=== PATIENT | male | born 1945 | race African-American/Black ===

== ENCOUNTER 2017-06-22 10:56 | Inpatient (IN) ==
[2017-06-22] MEDS ORDERED: BUPIVACAINE 0.25% 50 ML VIAL ONE (11:45)
[2017-06-22] MEDS ORDERED: HEPARIN 5,000 UNIT/1 ML VIAL ONE (11:45)
[2017-06-22] MEDS ORDERED: SODIUM CHLORIDE 0.9% 1,000 ML IV PRN ×2 (12:03→12:14)
[2017-06-22 12:05] LABS: Basophils % 0.2 % (0.0-0.8); Eosinophils # 0.1 10*3/uL (0.0-0.87); Eosinophils % 0.6 % (0.00-10.9); Hematocrit 18.3 VOL% (42.0-52.0); Immature Granulocytes % 8.1 %; Immature Granulocytes Absolute 1.02 #; Lymphocytes # 3.1 10*3/uL (1.4-4.0); Lymphocytes % 24.7 % (21.2-54.2); Mean Corpuscular HGB Conc 31.7 GM/DL (32-36); Mean Corpuscular Hemoglobin 27 PG (27-34); Mean Corpuscular Volume 84.7 FL (87-102); Monocytes % 7.6 % (1.7-12.7); NRBC # 0.03 10*3/uL; Neutrophils # 7.4 10*3/uL (1.4-7.4); Neutrophils % 58.8 % (38.7-73.9); Platelet Count 172 T/CUMM (130-400); Red Blood Count 2.16 MC/CUMM (3.8-5.5); Red Cell Distribution Width 16.8 % (9.3-17.3); White Blood Count 12.6 T/CUMM (4-12)
[2017-06-22] MEDS ORDERED: LIDOCAINE 1% 20 ML VIAL MISC INJ ONE (12:05)
[2017-06-22] MEDS ORDERED: HYDROmorphone 2 MG/1 ML VIAL IV ONE (12:05)
[2017-06-22] MEDS ORDERED: EPTIFIBATIDE 20,000 MCG/10 ML VIAL IV ONE (12:05)
[2017-06-22] MEDS ORDERED: NITROPRUSSIDE 50 MG/2 ML VIAL IV ONE (12:05)
[2017-06-22] MEDS ORDERED: NITROGLYCERIN 50 MG/250 ML BOTTLE IV ONE (12:05)
[2017-06-22] MEDS ORDERED: MIDAZOLAM 2 MG/2 ML VIAL IV ONE (12:05)
[2017-06-22] MEDS ORDERED: HEPARIN/NACL 0.9% 2 UNITS/ML 1,000 ML IV ONE (12:05)
[2017-06-22 12:09] LABS: Hemoglobin 5.8 GM/DL (14.0-18.0)
[2017-06-22] MEDS ORDERED: MAGNESIUM SULF RIDER 2 GM in PREMIX 1 EACH IV PRN (12:20)
[2017-06-22] MEDS ORDERED: POTASSIUM CHLORIDE 20 MEQ TABLET PO PRN (12:20)
[2017-06-22] MEDS ORDERED: BIVALIRUDIN 250 MG VIAL IV ONE (12:33)
[2017-06-22] MEDS ORDERED: BIVALIRUDIN 250 MG in SODIUM CHLORIDE 0.9% 50 ML IV SCH (12:52)
[2017-06-22] MEDS ORDERED: ROSUVASTATIN 20 MG TABLET PO SCH (13:00)
[2017-06-22 13:19] LABS: Hypochromasia 2+; Lymphocytes 26 % (20-55); Segmented Neutrophils 70 % (50-85); Total Cells Counted 100
[2017-06-22 13:20] LABS: Microcytosis Slight; Platelet Estimate Adequate
[2017-06-22] MEDS ORDERED: ACETAMINOPHEN 325 MG TABLET PO PRN (13:45)
[2017-06-22] MEDS ORDERED: NITROGLYCERIN SL 0.4 MG TABLET SL PRN (13:45)
[2017-06-22] MEDS ORDERED: ZALEPLON 5 MG CAPSULE PO PRN (13:45)
[2017-06-22] MEDS ORDERED: ACETAMINOPHEN/CODEINE 300-30 MG TABLET PO PRN (13:45)
[2017-06-22 13:50] LABS: Calcium 7.4 MG/DL (8.5-10.1); Osmolality,Calculated 292.1 MOS/KG (273-304); Potassium 3.2 MMOL/L (3.5-5.1)
[2017-06-22] MEDS ORDERED: ASPIRIN 300 MG SUPP RECTAL ONE (13:58)
[2017-06-22] MEDS ORDERED: ceFAZolin 1,000 MG VIAL ONE (14:20)
[2017-06-22] MEDS ORDERED: MIDAZOLAM 2 MG/2 ML VIAL ONE (15:19)
[2017-06-22] MEDS ORDERED: KETAMINE 500 MG/10 ML VIAL ONE (15:19)
[2017-06-22 15:56] LABS: Basophils # 0.1 10*3/uL (0.0-0.2); Basophils % 0.5 % (0.0-0.8); Eosinophils % 0.1 % (0.00-10.9); Hematocrit 39.4 VOL% (42.0-52.0); Hemoglobin 12.9 GM/DL (14.0-18.0); Immature Granulocytes Absolute 1.99 #; Lymphocytes # 2.4 10*3/uL (1.4-4.0); Lymphocytes % 8.5 % (21.2-54.2); Mean Corpuscular HGB Conc 32.7 GM/DL (32-36); Mean Corpuscular Hemoglobin 30 PG (27-34); Mean Corpuscular Volume 90.6 FL (87-102); Monocytes # 1.6 10*3/uL (0.11-0.8); Monocytes % 5.6 % (1.7-12.7); NRBC # 0.03 10*3/uL; Neutrophils # 22.2 10*3/uL (1.4-7.4); Neutrophils % 78.3 % (38.7-73.9); Platelet Count 140 T/CUMM (130-400); Red Blood Count 4.35 MC/CUMM (3.8-5.5); Red Cell Distribution Width 15.6 % (9.3-17.3); White Blood Count 28.4 T/CUMM (4-12)
[2017-06-22 16:29] LABS: Calcium 7.5 MG/DL (8.5-10.1); Osmolality,Calculated 284.8 MOS/KG (273-304)
[2017-06-22 16:44] LABS: Lymphocytes 7 % (20-55); Platelet Estimate Decreased; Segmented Neutrophils 92 % (50-85); Total Cells Counted 100
[2017-06-22] MEDS: SEVELAMER CARBONATE 800 MG TABLET PO SCH (16:49)
[2017-06-22] MEDS ORDERED: TICAGRELOR 90 MG TABLET PO ONE (17:00)
[2017-06-22] MEDS: MORPHINE 2 MG/1 ML SYRINGE IV PRN (20:47)
[2017-06-22] MEDS: ROSUVASTATIN 20 MG TABLET PO SCH (20:47)
[2017-06-22] MEDS: TICAGRELOR 90 MG TABLET PO SCH (20:47)
[2017-06-23] MEDS ORDERED: MAGNESIUM HYDROXIDE SUSP 30 ML UDCUP PO PRN (00:07)
[2017-06-23] MEDS ORDERED: HYDROmorphone 2 MG/1 ML VIAL IV PRN (00:07)
[2017-06-23] MEDS ORDERED: SODIUM CHLORIDE 0.9% 100 ML IV ONE (03:46)
[2017-06-23 05:10] LABS: Basophils # 0.1 10*3/uL (0.0-0.2); Basophils % 0.2 % (0.0-0.8); Hematocrit 37.6 VOL% (42.0-52.0); Hemoglobin 12.4 GM/DL (14.0-18.0); Immature Granulocytes % 9.4 %; Immature Granulocytes Absolute 2.85 #; Lymphocytes % 6.7 % (21.2-54.2); Mean Corpuscular Hemoglobin 30 PG (27-34); Mean Corpuscular Volume 89.5 FL (87-102); Mean Platelet Volume 11.9 FL (9.6-12.0); Monocytes # 1.8 10*3/uL (0.11-0.8); Neutrophils # 23.5 10*3/uL (1.4-7.4); Neutrophils % 77.7 % (38.7-73.9); Platelet Count 168 T/CUMM (130-400); Red Cell Distribution Width 16.2 % (9.3-17.3); White Blood Count 30.3 T/CUMM (4-12)
[2017-06-23] MEDS ORDERED: PHENYLEPHRINE DRIP 40 MG/250 ML PREMIX IV ONE ×2 (05:26→09:30)
[2017-06-23] MEDS ORDERED: PHENYLEPHRINE DRIP 40 MG/250 ML PREMIX IV SCH (05:30)
[2017-06-23 05:40] LABS: Calcium 8.3 MG/DL (8.5-10.1); Osmolality,Calculated 291.4 MOS/KG (273-304); Potassium 4.5 MMOL/L (3.5-5.1)
[2017-06-23 05:45] LABS: Band Neutrophils 14 % (0-10); Lymphocytes 10 % (20-55); Nucleated Red Blood Cells 4 (0-5); Segmented Neutrophils 69 % (50-85); Total Cells Counted 100
[2017-06-23 05:46] LABS: Burr Cells Slight; Giant Platelets Few; Hypochromasia 1+; Microcytosis Slight; Ovalocytes Slight; Platelet Estimate Normal
[2017-06-23 05:52] LABS: Risk Ratio 3.38; VLDL CHOLESTEROL 42.2 MG/DL
[2017-06-23] MEDS ORDERED: GLUCAGON 1 MG VIAL IM PRN (06:13)
[2017-06-23] MEDS: INSULIN REGULAR 100 UNIT/ML SUBCUT SCH ×3 (06:36→18:19)
[2017-06-23 08:13] LABS: CKMB % 15.2 %
[2017-06-23 08:17] LABS: Troponin I Only 26.3 NG/ML (0.00-0.045)
[2017-06-23] MEDS: SEVELAMER CARBONATE 800 MG TABLET PO SCH ×3 (09:43→16:37)
[2017-06-23] MEDS: MORPHINE 2 MG/1 ML SYRINGE IV PRN ×2 (09:44→16:32)
[2017-06-23] MEDS: TICAGRELOR 90 MG TABLET PO SCH ×2 (09:44→20:14)
[2017-06-23] MEDS: PANTOPRAZOLE 40 MG TABLET PO SCH (09:44)
[2017-06-23] MEDS: ASPIRIN EC 81 MG TABLET PO SCH (09:44)
[2017-06-23] MEDS ORDERED: SODIUM BICARBONATE 50 MEQ/50 ML SYRINGE IV ONE ×2 (10:50→20:50)
[2017-06-23] MEDS: PHENYLEPHRINE INJ 160 MG in SODIUM CHLORIDE 0.9% 234 ML IV SCH ×2 (11:38→23:01)
[2017-06-23] MEDS: SIMETHICONE CHEW 80 MG TABLET PO SCH ×3 (11:49→20:14)
[2017-06-23 12:21] LABS: Lactic Acid 14.5 MMOL/L (0.4-2.0)
[2017-06-23 12:36] LABS: CKMB % 16.6 %
[2017-06-23 12:41] LABS: Troponin I Only 39.3 NG/ML (0.00-0.045)
[2017-06-23 12:43] LABS: Alanine Aminotransferase 477 U/L (16-61); Albumin 2.6 G/DL (3.4-5.0); Alkaline Phosphatase 71 U/L (45-117); Aspartate Amino Transferase 672 U/L (0-37); Bilirubin,Direct < 0.100 MG/DL (0.0-0.20); Bilirubin,Indirect 0.3 MG/DL (0.0-1.0); Total Protein 5.2 G/DL (6.4-8.3)
[2017-06-23] MEDS ORDERED: BISACODYL 5 MG TABLET PO ONE (15:31)
[2017-06-23] MEDS ORDERED: ASPIRIN EC 81 MG TABLET PO SCH (17:00)
[2017-06-23 19:29] LABS: CKMB % 16.8 %
[2017-06-23 19:30] LABS: Troponin I Only 66.2 NG/ML (0.00-0.045)
[2017-06-23] MEDS ORDERED: NOREPINEPHRINE 4 MG/4 ML VIAL IV ONE ×2 (20:08→20:18)
[2017-06-23] MEDS: NOREPINEPHRINE 16 MG in SODIUM CHLORIDE 0.9% 234 ML IV SCH (20:14)
[2017-06-23] MEDS: ROSUVASTATIN 20 MG TABLET PO SCH (20:14)
[2017-06-23 20:15] LABS: ABG Base Excess -14.1 MMOL/L (-2.5-2.5); ABG HCO3 13.5 MMOL/L (20-26); ABG Oxygen Saturation 94.7 % (95-100); ABG PH 7.325 (7.35-7.45); ABG PO2 80.5 MM HG (80-95); ABG TCO2 9.6 MMOL/L (23-27); Pt O2 Delivery Device Room Air
[2017-06-23 20:17] LABS: ABG PCO2 20.3 MM HG (35-48)
[2017-06-23 21:02] LABS: Basophils % 0.2 % (0.0-0.8); Eosinophils % 0.1 % (0.00-10.9); Hematocrit 29.9 VOL% (42.0-52.0); Hemoglobin 10.1 GM/DL (14.0-18.0); Immature Granulocytes % 2.9 %; Immature Granulocytes Absolute 0.51 #; Lymphocytes # 1.1 10*3/uL (1.4-4.0); Lymphocytes % 6.4 % (21.2-54.2); Mean Corpuscular HGB Conc 33.8 GM/DL (32-36); Mean Corpuscular Hemoglobin 30 PG (27-34); Mean Corpuscular Volume 87.7 FL (87-102); Mean Platelet Volume 11.9 FL (9.6-12.0); Monocytes # 1.1 10*3/uL (0.11-0.8); NRBC # 1.06 10*3/uL; Neutrophils # 14.8 10*3/uL (1.4-7.4); Neutrophils % 84.4 % (38.7-73.9); Platelet Count 123 T/CUMM (130-400); Red Blood Count 3.41 MC/CUMM (3.8-5.5); White Blood Count 17.5 T/CUMM (4-12)
[2017-06-23 21:17] LABS: Lactic Acid 13.9 MMOL/L (0.4-2.0)
[2017-06-23 21:33] LABS: Acanthocytes 1+; Band Neutrophils 14 % (0-10); Lymphocytes 3 % (20-55); Nucleated Red Blood Cells 3 (0-5); Segmented Neutrophils 78 % (50-85); Total Cells Counted 100
[2017-06-23 21:34] LABS: Anisocytosis 1+; Platelet Estimate Adequate; Poikilocytosis 1+; Polychromasia Slight
[2017-06-23] MEDS: PIPERACILLIN/TAZOBACTAM 3,375 MG in SODIUM CHLORIDE 0.9% 100 ML IV SCH (21:44)
[2017-06-23] MEDS: metroNIDAZOLE INJ 500 MG in PREMIX 1 EACH IV SCH (21:44)
[2017-06-23 21:47] LABS: Calcium 8.2 MG/DL (8.5-10.1); Osmolality,Calculated 291.7 MOS/KG (273-304); Potassium 4.6 MMOL/L (3.5-5.1)
[2017-06-23] MEDS ORDERED: SODIUM CHLORIDE 0.9% 1,000 ML IV ONE (21:52)
[2017-06-23 22:50] LABS: ABG Base Excess -11.7 MMOL/L (-2.5-2.5); ABG HCO3 15.1 MMOL/L (20-26); ABG Oxygen Saturation 94.3 % (95-100); ABG PCO2 22.6 MM HG (35-48); ABG PH 7.357 (7.35-7.45); ABG PO2 74.1 MM HG (80-95); ABG TCO2 11.8 MMOL/L (23-27)
[2017-06-23] MEDS ORDERED: ALBUMIN 5% 25 GM in PREMIX 1 EACH IV ONE (23:54)
[2017-06-23] MEDS ORDERED: HYDROCORTISONE 100 MG VIAL IV ONE (23:54)
[2017-06-23] MEDS ORDERED: ALBUMIN 5% 12.5 GM/250 ML VIAL IV ONE (23:55)
[2017-06-24] MEDS: VASOPRESSIN 100 UNITS in SODIUM CHLORIDE 0.9% 95 ML IV SCH (00:10)
[2017-06-24] MEDS: INSULIN REGULAR 100 UNIT/ML SUBCUT SCH ×4 (00:15→18:07)
[2017-06-24 01:18] LABS: ABG Base Excess -10.7 MMOL/L (-2.5-2.5); ABG HCO3 15.8 MMOL/L (20-26); ABG Oxygen Saturation 99.4 % (95-100); ABG PCO2 36.2 MM HG (35-48); ABG PH 7.246 (7.35-7.45); ABG TCO2 15.1 MMOL/L (23-27); Glucose Heart Surgery 134 MG/DL (74-106); Potassium Heart/CVR 3.5 MMOL/L (3.5-5.1)
[2017-06-24] MEDS ORDERED: KETAMINE 500 MG/10 ML VIAL ONE (02:11)
[2017-06-24] MEDS ORDERED: SODIUM BICARBONATE 50 MEQ/50 ML SYRINGE IV ONE (02:16)
[2017-06-24] MEDS ORDERED: ROCURONIUM 100 MG/10 ML VIAL IV ONE ×2 (02:16→10:26)
[2017-06-24] MEDS ORDERED: SEVOFLURANE 1 UNIT/15 MINUTE INH ONE ×2 (02:16→10:26)
[2017-06-24] MEDS ORDERED: SODIUM CHLORIDE 0.9% 1,000 ML IV ONE ×2 (02:16→10:26)
[2017-06-24] MEDS: metroNIDAZOLE INJ 500 MG in PREMIX 1 EACH IV SCH ×5 (03:10→20:00)
[2017-06-24] MEDS: NOREPINEPHRINE 16 MG in SODIUM CHLORIDE 0.9% 234 ML IV SCH ×2 (03:31→17:29)
[2017-06-24 03:43] LABS: ABG HCO3 17.1 MMOL/L (20-26); ABG PCO2 37.6 MM HG (35-48); ABG PH 7.269 (7.35-7.45); ABG TCO2 16.4 MMOL/L (23-27)
[2017-06-24] MEDS: MORPHINE 2 MG/1 ML SYRINGE IV PRN ×4 (04:02→19:46)
[2017-06-24 04:23] LABS: Calcium 6.7 MG/DL (8.5-10.1); Osmolality,Calculated 300.1 MOS/KG (273-304)
[2017-06-24 04:37] LABS: Lactic Acid 9.1 MMOL/L (0.4-2.0)
[2017-06-24 05:20] LABS: Basophils % 0.1 % (0.0-0.8); Hematocrit 23.5 VOL% (42.0-52.0); Hemoglobin 7.9 GM/DL (14.0-18.0); Immature Granulocytes % 2.5 %; Immature Granulocytes Absolute 0.32 #; Lymphocytes # 0.5 10*3/uL (1.4-4.0); Lymphocytes % 3.6 % (21.2-54.2); Mean Corpuscular HGB Conc 33.6 GM/DL (32-36); Mean Corpuscular Hemoglobin 29 PG (27-34); Mean Corpuscular Volume 87.4 FL (87-102); Monocytes # 0.9 10*3/uL (0.11-0.8); Monocytes % 7.2 % (1.7-12.7); NRBC # 0.86 10*3/uL; Neutrophils # 11.2 10*3/uL (1.4-7.4); Neutrophils % 86.6 % (38.7-73.9); Red Blood Count 2.69 MC/CUMM (3.8-5.5); Red Cell Distribution Width 15.9 % (9.3-17.3); White Blood Count 12.9 T/CUMM (4-12)
[2017-06-24 05:41] LABS: INR 1.3; PT Patient Result 13.1 SECS; Partial Thromboplastin Time 35.6 SECS (0-40)
[2017-06-24 05:46] LABS: Platelet Count 71 T/CUMM (130-400)
[2017-06-24] MEDS: PROPOFOL 1,000 MG/100 ML BOTTLE IV SCH ×2 (06:22→22:25)
[2017-06-24] MEDS: PHENYLEPHRINE INJ 160 MG in SODIUM CHLORIDE 0.9% 234 ML IV SCH ×3 (06:23→20:19)
[2017-06-24 06:53] LABS: Band Neutrophils 9 % (0-10); Lymphocytes 4 % (20-55); Metamyelocytes 5 %; Myelocytes 1 %; Nucleated Red Blood Cells 5 (0-5); Segmented Neutrophils 76 % (50-85)
[2017-06-24 06:54] LABS: Burr Cells 2+; Hypochromasia Slight
[2017-06-24 06:55] LABS: Platelet Estimate Decreased; Total Cells Counted 100
[2017-06-24] MEDS: SEVELAMER CARBONATE 800 MG TABLET PO SCH ×3 (08:28→16:41)
[2017-06-24] MEDS ORDERED: MIDAZOLAM 10 MG/2 ML VIAL ONE (10:26)
[2017-06-24 10:54] LABS: Hematocrit 35.4 VOL% (42.0-52.0)
[2017-06-24] MEDS: PANTOPRAZOLE 40 MG TABLET PO SCH (11:55)
[2017-06-24] MEDS: TICAGRELOR 90 MG TABLET PO SCH ×2 (12:07→20:01)
[2017-06-24] MEDS: PIPERACILLIN/TAZOBACTAM 3,375 MG in SODIUM CHLORIDE 0.9% 100 ML IV SCH ×2 (12:07→20:01)
[2017-06-24] MEDS: ASPIRIN EC 81 MG TABLET PO SCH (12:08)
[2017-06-24] MEDS: SIMETHICONE CHEW 80 MG TABLET PO SCH ×3 (12:08→20:01)
[2017-06-24] MEDS: PANTOPRAZOLE 40 MG VIAL IV SCH (12:22)
[2017-06-24 13:46] LABS: Hepatitis B Surface Ag Quant < 0.10 Index; Hepatitis B Surface Ag Result Negative (Negative)
[2017-06-24] MEDS ORDERED: HEPARIN 10,000 UNIT/10 ML VIAL IV SCH (14:30)
[2017-06-24 14:33] LABS: Lactic Acid 7.2 MMOL/L (0.4-2.0)
[2017-06-24] MEDS: DEXTROSE 50% 25 GM/50 ML VIAL IV PRN (18:03)
[2017-06-24] MEDS: ROSUVASTATIN 20 MG TABLET PO SCH (20:00)
[2017-06-25] MEDS: DEXTROSE 50% 25 GM/50 ML VIAL IV PRN (00:08)
[2017-06-25] MEDS: INSULIN REGULAR 100 UNIT/ML SUBCUT SCH ×4 (00:15→18:17)
[2017-06-25] MEDS: NOREPINEPHRINE 16 MG in SODIUM CHLORIDE 0.9% 234 ML IV SCH ×4 (00:57→22:27)
[2017-06-25] MEDS: MORPHINE 2 MG/1 ML SYRINGE IV PRN ×2 (00:57→20:41)
[2017-06-25] MEDS: metroNIDAZOLE INJ 500 MG in PREMIX 1 EACH IV SCH ×4 (02:40→20:40)
[2017-06-25 03:42] LABS: ABG Base Excess -5.4 MMOL/L (-2.5-2.5); ABG HCO3 18.6 MMOL/L (20-26); ABG Oxygen Saturation 98.9 % (95-100); ABG PCO2 31.4 MM HG (35-48); ABG PO2 173.3 MM HG (80-95); ABG TCO2 19.5 MMOL/L (23-27)
[2017-06-25 03:47] LABS: Basophils # 0.1 10*3/uL (0.0-0.2); Basophils % 0.3 % (0.0-0.8); Hematocrit 33.8 VOL% (42.0-52.0); Hemoglobin 11.9 GM/DL (14.0-18.0); Immature Granulocytes % 3.8 %; Immature Granulocytes Absolute 0.55 #; Lymphocytes # 0.5 10*3/uL (1.4-4.0); Lymphocytes % 3.1 % (21.2-54.2); Mean Corpuscular HGB Conc 35.2 GM/DL (32-36); Mean Corpuscular Hemoglobin 30 PG (27-34); Mean Corpuscular Volume 84.1 FL (87-102); Mean Platelet Volume 12.8 FL (9.6-12.0); Monocytes # 0.8 10*3/uL (0.11-0.8); Monocytes % 5.5 % (1.7-12.7); NRBC # 0.94 10*3/uL; Neutrophils # 12.5 10*3/uL (1.4-7.4); Neutrophils % 87.3 % (38.7-73.9); Platelet Count 57 T/CUMM (130-400); Red Blood Count 4.02 MC/CUMM (3.8-5.5); Red Cell Distribution Width 17.1 % (9.3-17.3); White Blood Count 14.3 T/CUMM (4-12)
[2017-06-25 03:59] LABS: Lactic Acid 5.7 MMOL/L (0.4-2.0)
[2017-06-25 04:10] LABS: Calcium 6.5 MG/DL (8.5-10.1); Osmolality,Calculated 296.4 MOS/KG (273-304); Potassium 5.5 MMOL/L (3.5-5.1)
[2017-06-25 04:35] LABS: Band Neutrophils 58 % (0-10); Lymphocytes 4 % (20-55); Metamyelocytes 1 %; Myelocytes 1 %; Nucleated Red Blood Cells 10 (0-5); Segmented Neutrophils 36 % (50-85); Total Cells Counted 100
[2017-06-25 04:36] LABS: Anisocytosis 1+; Poikilocytosis 1+; Polychromasia Slight
[2017-06-25] MEDS: PROPOFOL 1,000 MG/100 ML BOTTLE IV SCH ×2 (04:59→22:28)
[2017-06-25] MEDS: SEVELAMER CARBONATE 800 MG TABLET PO SCH ×3 (08:05→16:24)
[2017-06-25] MEDS ORDERED: ALBUMIN 5% 25 GM in PREMIX 1 EACH IV ONE (08:06)
[2017-06-25 09:03] LABS: Lactic Acid 4.3 MMOL/L (0.4-2.0)
[2017-06-25] MEDS: VASOPRESSIN 100 UNITS in SODIUM CHLORIDE 0.9% 95 ML IV SCH ×2 (10:09→22:49)
[2017-06-25] MEDS: TICAGRELOR 90 MG TABLET PO SCH ×2 (11:02→20:42)
[2017-06-25] MEDS: SIMETHICONE CHEW 80 MG TABLET PO SCH ×3 (11:02→20:42)
[2017-06-25] MEDS: ASPIRIN EC 81 MG TABLET PO SCH (11:02)
[2017-06-25] MEDS: PIPERACILLIN/TAZOBACTAM 3,375 MG in SODIUM CHLORIDE 0.9% 100 ML IV SCH ×2 (11:05→20:41)
[2017-06-25] MEDS: PANTOPRAZOLE 40 MG VIAL IV SCH (11:12)
[2017-06-25] MEDS: PHENYLEPHRINE INJ 160 MG in SODIUM CHLORIDE 0.9% 234 ML IV SCH (18:01)
[2017-06-25] MEDS: ROSUVASTATIN 20 MG TABLET PO SCH (20:41)
[2017-06-26] MEDS: INSULIN REGULAR 100 UNIT/ML SUBCUT SCH ×4 (00:31→18:33)
[2017-06-26] MEDS: MORPHINE 2 MG/1 ML SYRINGE IV PRN (01:54)
[2017-06-26] MEDS: metroNIDAZOLE INJ 500 MG in PREMIX 1 EACH IV SCH ×4 (02:17→20:25)
[2017-06-26 02:31] LABS: ABG HCO3 20.2 MMOL/L (20-26); ABG Oxygen Saturation 98.4 % (95-100); ABG PCO2 29.7 MM HG (35-48); ABG PO2 164.8 MM HG (80-95); ABG TCO2 21.1 MMOL/L (23-27)
[2017-06-26 02:38] LABS: Basophils % 0.3 % (0.0-0.8); Hematocrit 28.3 VOL% (42.0-52.0); Hemoglobin 9.7 GM/DL (14.0-18.0); Immature Granulocytes % 0.8 %; Immature Granulocytes Absolute 0.08 #; Lymphocytes # 0.5 10*3/uL (1.4-4.0); Lymphocytes % 4.4 % (21.2-54.2); Mean Corpuscular HGB Conc 34.3 GM/DL (32-36); Mean Corpuscular Hemoglobin 30 PG (27-34); Mean Corpuscular Volume 86.3 FL (87-102); Mean Platelet Volume 11.7 FL (9.6-12.0); Monocytes # 0.4 10*3/uL (0.11-0.8); NRBC # 0.28 10*3/uL; Neutrophils # 9.3 10*3/uL (1.4-7.4); Neutrophils % 90.5 % (38.7-73.9); Red Blood Count 3.28 MC/CUMM (3.8-5.5); Red Cell Distribution Width 17.5 % (9.3-17.3); White Blood Count 10.2 T/CUMM (4-12)
[2017-06-26 02:40] LABS: Platelet Count 38 T/CUMM (130-400)
[2017-06-26] MEDS: DEXTROSE 50% 25 GM/50 ML VIAL IV PRN (02:47)
[2017-06-26 02:51] LABS: Calcium 6.8 MG/DL (8.5-10.1); Osmolality,Calculated 295.5 MOS/KG (273-304); Potassium 5.1 MMOL/L (3.5-5.1)
[2017-06-26 02:59] LABS: Band Neutrophils 3 % (0-10); Lymphocytes 2 % (20-55); Myelocytes 1 %; Nucleated Red Blood Cells 4 (0-5); Segmented Neutrophils 93 % (50-85)
[2017-06-26 03:01] LABS: Hypochromasia 1+; Platelet Estimate Decreased; Polychromasia Few; Tear Drop Cells Few
[2017-06-26 03:03] LABS: Total Cells Counted 100
[2017-06-26] MEDS ORDERED: PROPOFOL 200 MG/20 ML VIAL IV ONE (03:11)
[2017-06-26] MEDS ORDERED: AMIODARONE 150 MG/3 ML VIAL ONE ×2 (03:15→03:18)
[2017-06-26] MEDS ORDERED: AMIODARONE INJ 150 MG in DEXTROSE 5% 100 ML IV ONE (03:15)
[2017-06-26] MEDS ORDERED: AMIODARONE INJ 450 MG in DEXTROSE 5% 241 ML IV SCH (03:30)
[2017-06-26 06:15] LABS: INR 1.3; PT Patient Result 13.3 SECS
[2017-06-26] MEDS ORDERED: ALBUMIN 5% 12.5 GM/250 ML VIAL IV ONE ×2 (06:41→06:42)
[2017-06-26] MEDS ORDERED: ALBUMIN 5% 25 GM in PREMIX 1 EACH IV ONE (06:49)
[2017-06-26] MEDS ORDERED: SEVOFLURANE 1 UNIT/15 MINUTE INH ONE (08:22)
[2017-06-26] MEDS ORDERED: MIDAZOLAM 2 MG/2 ML VIAL ONE (08:22)
[2017-06-26] MEDS ORDERED: VECURONIUM 10 MG VIAL IV ONE (08:22)
[2017-06-26] MEDS: PROPOFOL 1,000 MG/100 ML BOTTLE IV SCH (08:57)
[2017-06-26] MEDS: SEVELAMER CARBONATE 800 MG TABLET PO SCH ×3 (08:58→17:58)
[2017-06-26] MEDS: SIMETHICONE CHEW 80 MG TABLET PO SCH ×3 (09:09→20:25)
[2017-06-26] MEDS: TICAGRELOR 90 MG TABLET PO SCH (09:09)
[2017-06-26] MEDS: PANTOPRAZOLE 40 MG VIAL IV SCH (09:09)
[2017-06-26] MEDS: ASPIRIN EC 81 MG TABLET PO SCH (09:09)
[2017-06-26] MEDS: PIPERACILLIN/TAZOBACTAM 3,375 MG in SODIUM CHLORIDE 0.9% 100 ML IV SCH (10:27)
[2017-06-26] MEDS: AMIODARONE INJ 450 MG in DEXTROSE 5% 241 ML IV SCH (10:54)
[2017-06-26] MEDS: CIPROFLOXACIN INJ 400 MG in PREMIX 1 EACH IV SCH (11:17)
[2017-06-26] MEDS: PHENYLEPHRINE INJ 160 MG in SODIUM CHLORIDE 0.9% 234 ML IV SCH (13:02)
[2017-06-26] MEDS ORDERED: ALBUMIN 25% 25 GM in PREMIX 1 EACH IV ONE (13:30)
[2017-06-26] MEDS: NOREPINEPHRINE 16 MG in SODIUM CHLORIDE 0.9% 234 ML IV SCH (20:28)
[2017-06-27] MEDS: INSULIN REGULAR 100 UNIT/ML SUBCUT SCH ×4 (00:38→19:05)
[2017-06-27] MEDS: PROPOFOL 1,000 MG/100 ML BOTTLE IV SCH ×3 (00:39→11:12)
[2017-06-27] MEDS: AMIODARONE INJ 450 MG in DEXTROSE 5% 241 ML IV SCH ×2 (02:50→19:04)
[2017-06-27 04:25] LABS: ABG Base Excess 0.8 MMOL/L (-2.5-2.5); ABG HCO3 23.1 MMOL/L (20-26); ABG Oxygen Saturation 98.8 % (95-100); ABG PCO2 27.9 MM HG (35-48); ABG PH 7.536 (7.35-7.45); ABG PO2 187.8 MM HG (80-95); Allen Test Positive; Pt O2 Delivery Device Ventilator
[2017-06-27 05:18] LABS: Basophils % 0.4 % (0.0-0.8); Eosinophils % 0.1 % (0.00-10.9); Hematocrit 23.1 VOL% (42.0-52.0); Hemoglobin 7.8 GM/DL (14.0-18.0); Immature Granulocytes % 6.2 %; Immature Granulocytes Absolute 0.53 #; Lymphocytes # 0.3 10*3/uL (1.4-4.0); Lymphocytes % 3.4 % (21.2-54.2); Mean Corpuscular HGB Conc 33.8 GM/DL (32-36); Mean Corpuscular Hemoglobin 29 PG (27-34); Mean Corpuscular Volume 87.2 FL (87-102); Mean Platelet Volume 11.4 FL (9.6-12.0); Monocytes # 0.5 10*3/uL (0.11-0.8); Monocytes % 6.3 % (1.7-12.7); NRBC # 0.27 10*3/uL; Neutrophils # 7.2 10*3/uL (1.4-7.4); Neutrophils % 83.6 % (38.7-73.9); Platelet Count 44 T/CUMM (130-400); Red Blood Count 2.65 MC/CUMM (3.8-5.5); Red Cell Distribution Width 17.4 % (9.3-17.3); White Blood Count 8.6 T/CUMM (4-12)
[2017-06-27 05:44] LABS: Band Neutrophils 4 % (0-10); Eosinophils 1 % (0-10); Lymphocytes 3 % (20-55); Nucleated Red Blood Cells 1 (0-5); Segmented Neutrophils 85 % (50-85); Total Cells Counted 100
[2017-06-27 05:45] LABS: Giant Platelets Few; Hypochromasia 1+; Ovalocytes Slight; Platelet Estimate Decreased
[2017-06-27 05:53] LABS: Albumin 2.4 G/DL (3.4-5.0); Bilirubin,Total 2.1 MG/DL (0.2-1.0); Calcium 7.5 MG/DL (8.5-10.1); Osmolality,Calculated 287.4 MOS/KG (273-304); Potassium 4.2 MMOL/L (3.5-5.1)
[2017-06-27 06:01] LABS: Calcium 7.5 MG/DL (8.5-10.1); Osmolality,Calculated 284.5 MOS/KG (273-304); Potassium 4.2 MMOL/L (3.5-5.1)
[2017-06-27] MEDS: metroNIDAZOLE INJ 500 MG in PREMIX 1 EACH IV SCH ×3 (06:51→19:04)
[2017-06-27] MEDS ORDERED: SODIUM CHLORIDE 0.9% 1,000 ML IV PRN ×3 (07:09→13:44)
[2017-06-27] MEDS: VASOPRESSIN 100 UNITS in SODIUM CHLORIDE 0.9% 95 ML IV SCH (07:43)
[2017-06-27] MEDS: SEVELAMER CARBONATE 800 MG TABLET PO SCH ×3 (08:42→17:04)
[2017-06-27] MEDS: SIMETHICONE CHEW 80 MG TABLET PO SCH ×3 (08:42→22:16)
[2017-06-27] MEDS: PANTOPRAZOLE 40 MG VIAL IV SCH (08:42)
[2017-06-27] MEDS: CIPROFLOXACIN INJ 400 MG in PREMIX 1 EACH IV SCH (11:11)
[2017-06-27] MEDS: ALBUTEROL/IPRATROPIUM 3 ML NEB RESP TX SCH ×2 (12:32→19:43)
[2017-06-27] MEDS: ROSUVASTATIN 20 MG TABLET PO SCH (17:04)
[2017-06-27] MEDS ORDERED: MICROFIBRILLAR COLLAGEN POWDER 1 GM CAN TOP ONE (17:16)
[2017-06-27] MEDS ORDERED: CALCIUM CHLORIDE 1,000 MG/10 ML VIAL IV ONE (18:37)
[2017-06-27] MEDS ORDERED: ROCURONIUM 100 MG/10 ML VIAL IV ONE (18:38)
[2017-06-27] MEDS ORDERED: SODIUM CHLORIDE 0.9% 250 ML IV ONE (18:38)
[2017-06-27] MEDS ORDERED: fentaNYL 100 MCG/2 ML VIAL ONE (18:38)
[2017-06-27] MEDS ORDERED: MIDAZOLAM 2 MG/2 ML VIAL ONE (18:38)
[2017-06-27] MEDS ORDERED: SEVOFLURANE 1 UNIT/15 MINUTE INH ONE (18:38)
[2017-06-27] MEDS: METOPROLOL TARTRATE 25 MG TABLET PO SCH (22:16)
[2017-06-27] MEDS: MORPHINE 2 MG/1 ML SYRINGE IV PRN (23:40)
[2017-06-28] MEDS: INSULIN REGULAR 100 UNIT/ML SUBCUT SCH ×4 (00:25→17:55)
[2017-06-28] MEDS: metroNIDAZOLE INJ 500 MG in PREMIX 1 EACH IV SCH ×4 (00:30→18:30)
[2017-06-28] MEDS: ALBUTEROL/IPRATROPIUM 3 ML NEB RESP TX SCH ×4 (01:38→19:27)
[2017-06-28] MEDS: PROPOFOL 1,000 MG/100 ML BOTTLE IV SCH ×4 (01:46→22:24)
[2017-06-28] MEDS: NOREPINEPHRINE 16 MG in SODIUM CHLORIDE 0.9% 234 ML IV SCH (01:52)
[2017-06-28 05:01] LABS: Basophils # 0.1 10*3/uL (0.0-0.2); Basophils % 0.6 % (0.0-0.8); Eosinophils # 0.1 10*3/uL (0.0-0.87); Eosinophils % 0.7 % (0.00-10.9); Hematocrit 29.3 VOL% (42.0-52.0); Hemoglobin 9.7 GM/DL (14.0-18.0); Immature Granulocytes % 13.1 %; Immature Granulocytes Absolute 1.11 #; Lymphocytes # 0.3 10*3/uL (1.4-4.0); Lymphocytes % 3.1 % (21.2-54.2); Mean Corpuscular HGB Conc 33.1 GM/DL (32-36); Mean Corpuscular Hemoglobin 29 PG (27-34); Mean Corpuscular Volume 88.3 FL (87-102); Mean Platelet Volume 12.8 FL (9.6-12.0); Monocytes # 0.7 10*3/uL (0.11-0.8); Monocytes % 8.4 % (1.7-12.7); NRBC # 0.11 10*3/uL; Neutrophils # 6.3 10*3/uL (1.4-7.4); Neutrophils % 74.1 % (38.7-73.9); Red Blood Count 3.32 MC/CUMM (3.8-5.5); Red Cell Distribution Width 17.7 % (9.3-17.3); White Blood Count 8.5 T/CUMM (4-12)
[2017-06-28 05:08] LABS: ABG Base Excess -1.2 MMOL/L (-2.5-2.5); ABG HCO3 23.4 MMOL/L (20-26); ABG Oxygen Saturation 99.3 % (95-100); ABG PCO2 33.7 MM HG (35-48); ABG PH 7.433 (7.35-7.45); ABG TCO2 20.5 MMOL/L (23-27); Allen Test Positive; Pt O2 Delivery Device Ventilator
[2017-06-28 05:08] LABS: Platelet Count 58 T/CUMM (130-400)
[2017-06-28 05:25] LABS: Calcium 7.9 MG/DL (8.5-10.1); Osmolality,Calculated 287.7 MOS/KG (273-304); Potassium 4.4 MMOL/L (3.5-5.1)
[2017-06-28 05:34] LABS: Band Neutrophils 5 % (0-10); Eosinophils 1 % (0-10); Hypochromasia 1+; Lymphocytes 4 % (20-55); Nucleated Red Blood Cells 4 (0-5); Ovalocytes Slight; Platelet Estimate Decreased; Segmented Neutrophils 81 % (50-85); Total Cells Counted 100
[2017-06-28 05:35] LABS: Giant Platelets Few
[2017-06-28] MEDS: AMIODARONE INJ 450 MG in DEXTROSE 5% 241 ML IV SCH ×2 (07:37→10:49)
[2017-06-28] MEDS: SEVELAMER CARBONATE 800 MG TABLET PO SCH ×3 (08:47→16:33)
[2017-06-28] MEDS: METOPROLOL TARTRATE 25 MG TABLET PO SCH (08:53)
[2017-06-28] MEDS: ROSUVASTATIN 20 MG TABLET PO SCH (08:53)
[2017-06-28] MEDS: SIMETHICONE CHEW 80 MG TABLET PO SCH (08:54)
[2017-06-28] MEDS: PANTOPRAZOLE 40 MG VIAL IV SCH (09:01)
[2017-06-28] MEDS: ALBUMIN 5% 25 GM in PREMIX 1 EACH IV SCH ×2 (10:27→16:44)
[2017-06-28] MEDS: CIPROFLOXACIN INJ 400 MG in PREMIX 1 EACH IV SCH (13:28)
[2017-06-28] MEDS: FAT EMULSION 20% 250 ML IV SCH (14:50)
[2017-06-28] MEDS: MULTIVITAMIN INJ 10 ML in AMINO ACIDS/DEXT/LYTES 5-15% 2,000 ML IV SCH (16:44)
[2017-06-28] MEDS ORDERED: DEXTROSE 10% 1,000 ML IV PRN (17:00)
[2017-06-29] MEDS: metroNIDAZOLE INJ 500 MG in PREMIX 1 EACH IV SCH ×4 (00:32→19:41)
[2017-06-29] MEDS: INSULIN REGULAR 100 UNIT/ML SUBCUT SCH ×4 (00:39→18:57)
[2017-06-29] MEDS: NOREPINEPHRINE 16 MG in SODIUM CHLORIDE 0.9% 234 ML IV SCH (01:48)
[2017-06-29] MEDS: ALBUMIN 5% 25 GM in PREMIX 1 EACH IV SCH ×3 (01:49→18:23)
[2017-06-29] MEDS: AMIODARONE INJ 450 MG in DEXTROSE 5% 241 ML IV SCH ×3 (02:05→18:25)
[2017-06-29] MEDS: ALBUTEROL/IPRATROPIUM 3 ML NEB RESP TX SCH ×4 (02:05→20:03)
[2017-06-29 04:21] LABS: ABG Base Excess -2.4 MMOL/L (-2.5-2.5); ABG HCO3 22.4 MMOL/L (20-26); ABG Oxygen Saturation 99.9 % (95-100); ABG PCO2 32.5 MM HG (35-48); ABG PH 7.426 (7.35-7.45)
[2017-06-29] MEDS: PROPOFOL 1,000 MG/100 ML BOTTLE IV SCH (05:35)
[2017-06-29 06:56] LABS: Albumin 2.8 G/DL (3.4-5.0); Bilirubin,Direct 1.77 MG/DL (0.0-0.20); Bilirubin,Indirect 0.8 MG/DL (0.0-1.0); Bilirubin,Total 2.6 MG/DL (0.2-1.0); Total Protein 4.5 G/DL (6.4-8.3)
[2017-06-29 07:00] LABS: Calcium 7.8 MG/DL (8.5-10.1); Osmolality,Calculated 280.2 MOS/KG (273-304); Potassium 4.1 MMOL/L (3.5-5.1)
[2017-06-29 07:14] LABS: Prealbumin 11.3 MG/DL (20-40)
[2017-06-29 08:43] LABS: Basophils % 0.4 % (0.0-0.8); Eosinophils # 0.1 10*3/uL (0.0-0.87); Eosinophils % 0.9 % (0.00-10.9); Hematocrit 25.3 VOL% (42.0-52.0); Hemoglobin 8.4 GM/DL (14.0-18.0); Immature Granulocytes Absolute 1.44 #; Lymphocytes # 0.3 10*3/uL (1.4-4.0); Lymphocytes % 3.7 % (21.2-54.2); Mean Corpuscular HGB Conc 33.2 GM/DL (32-36); Mean Corpuscular Hemoglobin 30 PG (27-34); Mean Corpuscular Volume 88.8 FL (87-102); Mean Platelet Volume 12.1 FL (9.6-12.0); Monocytes # 0.8 10*3/uL (0.11-0.8); NRBC # 0.03 10*3/uL; Neutrophils # 5.9 10*3/uL (1.4-7.4); Red Blood Count 2.85 MC/CUMM (3.8-5.5); Red Cell Distribution Width 18.3 % (9.3-17.3); White Blood Count 8.5 T/CUMM (4-12)
[2017-06-29 09:12] LABS: Platelet Count 43 T/CUMM (130-400)
[2017-06-29] MEDS: SEVELAMER CARBONATE 800 MG TABLET PO SCH ×3 (09:17→17:31)
[2017-06-29 09:20] LABS: Band Neutrophils 6 % (0-10); Giant Platelets Few; Hypochromasia 1+; Lymphocytes 3 % (20-55); Platelet Estimate Decreased; Segmented Neutrophils 81 % (50-85); Total Cells Counted 100
[2017-06-29] MEDS: PANTOPRAZOLE 40 MG VIAL IV SCH (09:48)
[2017-06-29] MEDS: CIPROFLOXACIN INJ 400 MG in PREMIX 1 EACH IV SCH (11:36)
[2017-06-29] MEDS: MORPHINE 2 MG/1 ML SYRINGE IV PRN ×3 (12:43→20:28)
[2017-06-29] MEDS ORDERED: SODIUM CHLORIDE 0.9% 1,000 ML IV PRN (12:59)
[2017-06-29] MEDS: FAT EMULSION 20% 250 ML IV SCH (14:35)
[2017-06-29] MEDS: MULTIVITAMIN INJ 10 ML in AMINO ACIDS/DEXT/LYTES 5-15% 2,000 ML IV SCH (18:24)
[2017-06-30] MEDS: MORPHINE 2 MG/1 ML SYRINGE IV PRN ×5 (00:11→20:19)
[2017-06-30] MEDS: INSULIN REGULAR 100 UNIT/ML SUBCUT SCH ×5 (00:11→23:15)
[2017-06-30] MEDS: metroNIDAZOLE INJ 500 MG in PREMIX 1 EACH IV SCH ×4 (00:40→17:30)
[2017-06-30] MEDS: ALBUTEROL/IPRATROPIUM 3 ML NEB RESP TX SCH ×4 (01:54→19:03)
[2017-06-30] MEDS: ALBUMIN 5% 25 GM in PREMIX 1 EACH IV SCH ×2 (01:55→08:31)
[2017-06-30 05:14] LABS: Basophils % 0.2 % (0.0-0.8); Eosinophils # 0.1 10*3/uL (0.0-0.87); Eosinophils % 0.6 % (0.00-10.9); Hematocrit 26.4 VOL% (42.0-52.0); Hemoglobin 8.5 GM/DL (14.0-18.0); Immature Granulocytes % 17.1 %; Immature Granulocytes Absolute 2.16 #; Lymphocytes # 0.2 10*3/uL (1.4-4.0); Lymphocytes % 1.6 % (21.2-54.2); Mean Corpuscular HGB Conc 32.2 GM/DL (32-36); Mean Corpuscular Hemoglobin 29 PG (27-34); Mean Corpuscular Volume 90.4 FL (87-102); Mean Platelet Volume 12.5 FL (9.6-12.0); Monocytes % 8.2 % (1.7-12.7); NRBC # 0.02 10*3/uL; Neutrophils # 9.1 10*3/uL (1.4-7.4); Neutrophils % 72.3 % (38.7-73.9); Platelet Count 63 T/CUMM (130-400); Red Blood Count 2.92 MC/CUMM (3.8-5.5); Red Cell Distribution Width 18.3 % (9.3-17.3); White Blood Count 12.6 T/CUMM (4-12)
[2017-06-30 05:39] LABS: Calcium 7.8 MG/DL (8.5-10.1); Osmolality,Calculated 281.5 MOS/KG (273-304); Potassium 4.5 MMOL/L (3.5-5.1)
[2017-06-30 06:03] LABS: Band Neutrophils 11 % (0-10); Eosinophils 1 % (0-10); Giant Platelets Few; Hypochromasia 1+; Lymphocytes 6 % (20-55); Myelocytes 3 %; Nucleated Red Blood Cells 1 (0-5); Ovalocytes Slight; Platelet Estimate Decreased; Segmented Neutrophils 72 % (50-85); Total Cells Counted 100
[2017-06-30] MEDS: PANTOPRAZOLE 40 MG VIAL IV SCH (08:32)
[2017-06-30] MEDS: ASPIRIN EC 81 MG TABLET PO SCH (08:32)
[2017-06-30] MEDS: SEVELAMER CARBONATE 800 MG TABLET PO SCH ×3 (08:32→17:30)
[2017-06-30] MEDS: CARVEDILOL 3.125 MG TABLET PO SCH ×2 (10:04→20:13)
[2017-06-30] MEDS: AMIODARONE 200 MG TABLET PO SCH ×2 (10:05→20:13)
[2017-06-30] MEDS ORDERED: ALBUMIN 25% 25 GM in PREMIX 1 EACH IV PRN (10:52)
[2017-06-30] MEDS: AMIODARONE INJ 450 MG in DEXTROSE 5% 241 ML IV SCH (11:07)
[2017-06-30] MEDS ORDERED: ALTEPLASE 2 MG VIAL INTRACATH ONE (12:30)
[2017-06-30] MEDS: CIPROFLOXACIN INJ 400 MG in PREMIX 1 EACH IV SCH (13:05)
[2017-06-30] MEDS: LISINOPRIL 2.5 MG TABLET PO SCH ×2 (14:17→20:13)
[2017-06-30] MEDS: FAT EMULSION 20% 250 ML IV SCH (16:06)
[2017-06-30] MEDS: MULTIVITAMIN INJ 10 ML in AMINO ACIDS/DEXT/LYTES 5-15% 2,000 ML IV SCH (17:30)
[2017-07-01] MEDS: metroNIDAZOLE INJ 500 MG in PREMIX 1 EACH IV SCH ×4 (00:35→17:05)
[2017-07-01] MEDS: ALBUTEROL/IPRATROPIUM 3 ML NEB RESP TX SCH ×4 (01:29→19:02)
[2017-07-01] MEDS: MORPHINE 2 MG/1 ML SYRINGE IV PRN ×3 (02:14→14:59)
[2017-07-01 06:24] LABS: Basophils % 0.3 % (0.0-0.8); Eosinophils # 0.1 10*3/uL (0.0-0.87); Eosinophils % 0.6 % (0.00-10.9); Hematocrit 28.2 VOL% (42.0-52.0); Hemoglobin 9.2 GM/DL (14.0-18.0); Immature Granulocytes Absolute 2.02 #; Lymphocytes # 0.4 10*3/uL (1.4-4.0); Lymphocytes % 2.7 % (21.2-54.2); Mean Corpuscular HGB Conc 32.6 GM/DL (32-36); Mean Corpuscular Hemoglobin 29 PG (27-34); Mean Corpuscular Volume 88.4 FL (87-102); Mean Platelet Volume 12.1 FL (9.6-12.0); Monocytes % 6.6 % (1.7-12.7); Neutrophils % 75.8 % (38.7-73.9); Platelet Count 102 T/CUMM (130-400); Red Blood Count 3.19 MC/CUMM (3.8-5.5); Red Cell Distribution Width 18.6 % (9.3-17.3); White Blood Count 14.5 T/CUMM (4-12)
[2017-07-01] MEDS: INSULIN REGULAR 100 UNIT/ML SUBCUT SCH ×4 (06:29→23:51)
[2017-07-01 06:53] LABS: Albumin 2.7 G/DL (3.4-5.0); Bilirubin,Total 4.2 MG/DL (0.2-1.0); Calcium 8.2 MG/DL (8.5-10.1); Osmolality,Calculated 281.7 MOS/KG (273-304); Potassium 4.6 MMOL/L (3.5-5.1); Total Protein 4.8 G/DL (6.4-8.3)
[2017-07-01 07:44] LABS: Hypochromasia 2+; Macrocytosis Slight; Polychromasia Slight
[2017-07-01 07:45] LABS: Platelet Estimate Decreased
[2017-07-01] MEDS: PANTOPRAZOLE 40 MG VIAL IV SCH (08:12)
[2017-07-01] MEDS: SEVELAMER CARBONATE 800 MG TABLET PO SCH ×3 (08:12→17:05)
[2017-07-01] MEDS: AMIODARONE 200 MG TABLET PO SCH ×2 (08:12→21:54)
[2017-07-01] MEDS: ASPIRIN EC 81 MG TABLET PO SCH (08:12)
[2017-07-01] MEDS: CARVEDILOL 3.125 MG TABLET PO SCH ×2 (08:12→21:54)
[2017-07-01] MEDS: LISINOPRIL 2.5 MG TABLET PO SCH ×2 (08:12→21:15)
[2017-07-01] MEDS: ISOSORBIDE DINITRATE 20 MG TABLET PO SCH ×3 (10:03→21:15)
[2017-07-01] MEDS: hydrALAZINE 25 MG TABLET PO SCH ×3 (10:03→21:13)
[2017-07-01] MEDS: CIPROFLOXACIN INJ 400 MG in PREMIX 1 EACH IV SCH (11:00)
[2017-07-01] MEDS: FAT EMULSION 20% 250 ML IV SCH (14:30)
[2017-07-01] MEDS: MULTIVITAMIN INJ 10 ML in AMINO ACIDS/DEXT/LYTES 5-15% 2,000 ML IV SCH (17:30)
[2017-07-02] MEDS: ALBUTEROL/IPRATROPIUM 3 ML NEB RESP TX SCH ×4 (00:36→18:57)
[2017-07-02] MEDS: metroNIDAZOLE INJ 500 MG in PREMIX 1 EACH IV SCH ×4 (02:13→17:56)
[2017-07-02 05:35] LABS: Basophils # 0.1 10*3/uL (0.0-0.2); Basophils % 0.3 % (0.0-0.8); Eosinophils # 0.2 10*3/uL (0.0-0.87); Hematocrit 28.5 VOL% (42.0-52.0); Hemoglobin 9.5 GM/DL (14.0-18.0); Immature Granulocytes % 11.9 %; Immature Granulocytes Absolute 1.84 #; Lymphocytes # 0.8 10*3/uL (1.4-4.0); Mean Corpuscular HGB Conc 33.3 GM/DL (32-36); Mean Corpuscular Hemoglobin 29 PG (27-34); Mean Corpuscular Volume 86.6 FL (87-102); Mean Platelet Volume 11.4 FL (9.6-12.0); Monocytes % 6.5 % (1.7-12.7); Neutrophils # 11.6 10*3/uL (1.4-7.4); Neutrophils % 75.3 % (38.7-73.9); Platelet Count 140 T/CUMM (130-400); Red Blood Count 3.29 MC/CUMM (3.8-5.5); Red Cell Distribution Width 18.4 % (9.3-17.3); White Blood Count 15.5 T/CUMM (4-12)
[2017-07-02 06:03] LABS: Calcium 8.3 MG/DL (8.5-10.1); Osmolality,Calculated 283.9 MOS/KG (273-304); Potassium 4.8 MMOL/L (3.5-5.1)
[2017-07-02] MEDS: INSULIN REGULAR 100 UNIT/ML SUBCUT SCH ×3 (06:23→18:20)
[2017-07-02 06:32] LABS: Band Neutrophils 13 % (0-10); Lymphocytes 4 % (20-55); Polychromasia Slight; Promyelocytes 1 %; Segmented Neutrophils 70 % (50-85); Target Cells Slight; Total Cells Counted 100
[2017-07-02 06:33] LABS: Platelet Estimate Adequate
[2017-07-02] MEDS: SEVELAMER CARBONATE 800 MG TABLET PO SCH (08:26)
[2017-07-02] MEDS: PANTOPRAZOLE 40 MG VIAL IV SCH (08:26)
[2017-07-02] MEDS: ASPIRIN EC 81 MG TABLET PO SCH (08:26)
[2017-07-02] MEDS ORDERED: SODIUM CHLORIDE 0.9% 250 ML IV ONE (09:29)
[2017-07-02] MEDS: DOPamine 800 MG/250 ML PREMIX IV SCH (10:14)
[2017-07-02] MEDS: ISOSORBIDE DINITRATE 20 MG TABLET PO SCH ×3 (10:54→22:36)
[2017-07-02] MEDS: METOPROLOL SUCCINATE XL 25 MG TABLET PO SCH ×2 (10:54→22:37)
[2017-07-02] MEDS: AMIODARONE 200 MG TABLET PO SCH ×2 (10:54→22:36)
[2017-07-02] MEDS: CIPROFLOXACIN INJ 400 MG in PREMIX 1 EACH IV SCH (11:04)
[2017-07-02] MEDS: FAT EMULSION 20% 250 ML IV SCH (13:59)
[2017-07-02 14:51] LABS: ABG Base Excess -9.5 MMOL/L (-2.5-2.5); ABG HCO3 16.6 MMOL/L (20-26); ABG PO2 54.3 MM HG (80-95); ABG TCO2 21.1 MMOL/L (23-27)
[2017-07-02 14:54] LABS: ABG PH 7.078 (7.35-7.45)
[2017-07-02] MEDS ORDERED: PROPOFOL 200 MG/20 ML VIAL IV ONE (15:28)
[2017-07-02] MEDS ORDERED: ROCURONIUM 100 MG/10 ML VIAL IV ONE (15:28)
[2017-07-02] MEDS ORDERED: NOREPINEPHRINE 4 MG/4 ML VIAL IV ONE (15:32)
[2017-07-02] MEDS ORDERED: SODIUM CHLORIDE 0.9% 1,000 ML IV ONE (15:45)
[2017-07-02 15:56] LABS: ABG HCO3 17.2 MMOL/L (20-26); ABG PCO2 56.9 MM HG (35-48); ABG TCO2 19.1 MMOL/L (23-27); Allen Test Positive; Pt O2 Delivery Device Ventilator
[2017-07-02 15:58] LABS: ABG Oxygen Saturation 99.4 % (95-100)
[2017-07-02 16:00] LABS: ABG PH 7.159 (7.35-7.45)
[2017-07-02] MEDS ORDERED: SODIUM BICARBONATE 50 MEQ/50 ML SYRINGE IV ONE ×2 (16:17→16:22)
[2017-07-02] MEDS: NOREPINEPHRINE 8 MG in SODIUM CHLORIDE 0.9% 242 ML IV SCH (16:32)
[2017-07-02 17:35] LABS: ABG Base Excess -6.4 MMOL/L (-2.5-2.5); ABG HCO3 19.1 MMOL/L (20-26); ABG Oxygen Saturation 95.9 % (95-100); ABG PCO2 40.8 MM HG (35-48); ABG PH 7.293 (7.35-7.45); ABG PO2 75.7 MM HG (80-95); ABG TCO2 18.2 MMOL/L (23-27); Allen Test Positive; Pt O2 Delivery Device Ventilator
[2017-07-02] MEDS: PROPOFOL 1,000 MG/100 ML BOTTLE IV SCH (17:54)
[2017-07-02] MEDS: MULTIVITAMIN INJ 10 ML in AMINO ACIDS/DEXT/LYTES 5-15% 2,000 ML IV SCH (17:55)
[2017-07-03] MEDS: ALBUTEROL/IPRATROPIUM 3 ML NEB RESP TX SCH ×4 (00:11→19:30)
[2017-07-03] MEDS: INSULIN REGULAR 100 UNIT/ML SUBCUT SCH ×5 (01:11→23:21)
[2017-07-03] MEDS: metroNIDAZOLE INJ 500 MG in PREMIX 1 EACH IV SCH ×4 (01:35→18:19)
[2017-07-03 04:02] LABS: ABG Base Excess -5.2 MMOL/L (-2.5-2.5); ABG HCO3 20.2 MMOL/L (20-26); ABG Oxygen Saturation 98.7 % (95-100); ABG PH 7.357 (7.35-7.45); ABG TCO2 17.3 MMOL/L (23-27); Allen Test Positive; Pt O2 Delivery Device Ventilator
[2017-07-03 05:38] LABS: Basophils # 0.1 10*3/uL (0.0-0.2); Basophils % 0.2 % (0.0-0.8); Eosinophils # 0.1 10*3/uL (0.0-0.87); Eosinophils % 0.4 % (0.00-10.9); Hemoglobin 9.7 GM/DL (14.0-18.0); Immature Granulocytes Absolute 1.88 #; Lymphocytes # 0.3 10*3/uL (1.4-4.0); Lymphocytes % 1.2 % (21.2-54.2); Mean Corpuscular HGB Conc 33.4 GM/DL (32-36); Mean Corpuscular Hemoglobin 29 PG (27-34); Mean Corpuscular Volume 86.6 FL (87-102); Mean Platelet Volume 10.8 FL (9.6-12.0); Monocytes # 1.6 10*3/uL (0.11-0.8); Monocytes % 7.5 % (1.7-12.7); NRBC # 0.02 10*3/uL; Neutrophils # 17.1 10*3/uL (1.4-7.4); Neutrophils % 81.7 % (38.7-73.9); Platelet Count 201 T/CUMM (130-400); Red Blood Count 3.35 MC/CUMM (3.8-5.5); Red Cell Distribution Width 17.7 % (9.3-17.3); White Blood Count 20.9 T/CUMM (4-12)
[2017-07-03 05:59] LABS: Calcium 8.3 MG/DL (8.5-10.1); Osmolality,Calculated 291.9 MOS/KG (273-304); Potassium 5.3 MMOL/L (3.5-5.1)
[2017-07-03 06:02] LABS: Lymphocytes 9 % (20-55); Platelet Estimate Normal; Segmented Neutrophils 85 % (50-85); Total Cells Counted 100
[2017-07-03] MEDS ORDERED: ALBUMIN 5% 25 GM in PREMIX 1 EACH IV ONE (07:13)
[2017-07-03] MEDS ORDERED: ASPIRIN CHEW 81 MG TABLET PO SCH (09:30)
[2017-07-03] MEDS: PANTOPRAZOLE 40 MG VIAL IV SCH (11:10)
[2017-07-03] MEDS: AMIODARONE 200 MG TABLET PO SCH (11:41)
[2017-07-03] MEDS: ISOSORBIDE DINITRATE 20 MG TABLET PO SCH (11:41)
[2017-07-03] MEDS: METOPROLOL SUCCINATE XL 25 MG TABLET PO SCH (11:41)
[2017-07-03] MEDS: ASPIRIN EC 81 MG TABLET PO SCH (11:41)
[2017-07-03] MEDS: PROPOFOL 1,000 MG/100 ML BOTTLE IV SCH ×2 (11:45→18:51)
[2017-07-03] MEDS ORDERED: VANCOMYCIN INJ 1,000 MG in SODIUM CHLORIDE 0.9% 250 ML IV ONE (14:00)
[2017-07-03] MEDS ORDERED: GENTAMICIN INJ 100 MG in PREMIX 1 EACH IV ONE (14:00)
[2017-07-03] MEDS: FAT EMULSION 20% 250 ML IV SCH (15:12)
[2017-07-03] MEDS: NOREPINEPHRINE 8 MG in SODIUM CHLORIDE 0.9% 242 ML IV SCH (15:43)
[2017-07-03] MEDS: ASPIRIN 300 MG SUPP RECTAL SCH (17:08)
[2017-07-03] MEDS: CIPROFLOXACIN INJ 400 MG in PREMIX 1 EACH IV SCH (17:11)
[2017-07-03] MEDS: DOPamine 800 MG/250 ML PREMIX IV SCH (17:22)
[2017-07-03] MEDS: MULTIVITAMIN INJ 10 ML in AMINO ACIDS/DEXT/LYTES 5-15% 2,000 ML IV SCH (17:23)
[2017-07-04] MEDS: ALBUTEROL/IPRATROPIUM 3 ML NEB RESP TX SCH ×4 (00:38→19:11)
[2017-07-04] MEDS: metroNIDAZOLE INJ 500 MG in PREMIX 1 EACH IV SCH ×4 (01:02→17:39)
[2017-07-04 04:13] LABS: ABG Base Excess -2.2 MMOL/L (-2.5-2.5); ABG HCO3 22.5 MMOL/L (20-26); ABG Oxygen Saturation 89.6 % (95-100); ABG PCO2 31.1 MM HG (35-48); ABG PH 7.443 (7.35-7.45); ABG PO2 55.4 MM HG (80-95); ABG TCO2 19.7 MMOL/L (23-27)
[2017-07-04 05:13] LABS: Basophils % 0.2 % (0.0-0.8); Eosinophils # 0.1 10*3/uL (0.0-0.87); Eosinophils % 0.9 % (0.00-10.9); Immature Granulocytes % 7.3 %; Immature Granulocytes Absolute 0.98 #; Lymphocytes # 0.4 10*3/uL (1.4-4.0); Lymphocytes % 3.1 % (21.2-54.2); Mean Corpuscular HGB Conc 33.3 GM/DL (32-36); Mean Corpuscular Hemoglobin 28 PG (27-34); Mean Corpuscular Volume 84.4 FL (87-102); Mean Platelet Volume 10.6 FL (9.6-12.0); Monocytes # 1.3 10*3/uL (0.11-0.8); Monocytes % 9.4 % (1.7-12.7); Neutrophils # 10.6 10*3/uL (1.4-7.4); Neutrophils % 79.1 % (38.7-73.9); Platelet Count 201 T/CUMM (130-400); Red Cell Distribution Width 17.3 % (9.3-17.3); White Blood Count 13.4 T/CUMM (4-12)
[2017-07-04 05:33] LABS: Calcium 7.6 MG/DL (8.5-10.1); Osmolality,Calculated 285.5 MOS/KG (273-304); Potassium 4.3 MMOL/L (3.5-5.1)
[2017-07-04 05:38] LABS: Band Neutrophils 5 % (0-10); Eosinophils 2 % (0-10); Lymphocytes 3 % (20-55); Segmented Neutrophils 85 % (50-85); Total Cells Counted 100
[2017-07-04 05:39] LABS: Platelet Estimate Adequate; Target Cells Slight
[2017-07-04 05:40] LABS: Hypochromasia Slight; Ovalocytes Slight
[2017-07-04] MEDS: INSULIN REGULAR 100 UNIT/ML SUBCUT SCH ×3 (05:58→17:54)
[2017-07-04] MEDS: PROPOFOL 1,000 MG/100 ML BOTTLE IV SCH ×2 (06:01→16:56)
[2017-07-04 08:48] LABS: ABG HCO3 21.9 MMOL/L (20-26); ABG Oxygen Saturation 99.6 % (95-100); ABG PCO2 30.4 MM HG (35-48); ABG PH 7.436 (7.35-7.45); ABG TCO2 18.8 MMOL/L (23-27)
[2017-07-04] MEDS: ASPIRIN 300 MG SUPP RECTAL SCH (09:03)
[2017-07-04] MEDS: PANTOPRAZOLE 40 MG VIAL IV SCH (09:03)
[2017-07-04] MEDS: CIPROFLOXACIN INJ 400 MG in PREMIX 1 EACH IV SCH (11:22)
[2017-07-04] MEDS: ALBUMIN 25% 25 GM in PREMIX 1 EACH IV SCH (12:08)
[2017-07-04] MEDS: FAT EMULSION 20% 250 ML IV SCH (16:52)
[2017-07-04] MEDS: MULTIVITAMIN INJ 10 ML in AMINO ACIDS/DEXT/LYTES 5-15% 2,000 ML IV SCH (17:21)
[2017-07-04] MEDS: NOREPINEPHRINE 8 MG in SODIUM CHLORIDE 0.9% 242 ML IV SCH (17:53)
[2017-07-04] MEDS: DOPamine 800 MG/250 ML PREMIX IV SCH (17:53)
[2017-07-05] MEDS: ALBUMIN 25% 25 GM in PREMIX 1 EACH IV SCH ×3 (00:08→23:03)
[2017-07-05] MEDS: INSULIN REGULAR 100 UNIT/ML SUBCUT SCH ×5 (00:10→23:53)
[2017-07-05] MEDS: ALBUTEROL/IPRATROPIUM 3 ML NEB RESP TX SCH ×4 (00:52→19:17)
[2017-07-05] MEDS: metroNIDAZOLE INJ 500 MG in PREMIX 1 EACH IV SCH ×5 (01:04→23:54)
[2017-07-05 03:34] LABS: ABG Base Excess -3.9 MMOL/L (-2.5-2.5); ABG HCO3 21.2 MMOL/L (20-26); ABG Oxygen Saturation 99.4 % (95-100); ABG PCO2 29.6 MM HG (35-48); ABG PH 7.433 (7.35-7.45); ABG TCO2 18.6 MMOL/L (23-27); Allen Test Positive; Pt O2 Delivery Device Ventilator
[2017-07-05 06:42] LABS: Calcium 7.8 MG/DL (8.5-10.1); Osmolality,Calculated 290.8 MOS/KG (273-304); Potassium 4.2 MMOL/L (3.5-5.1)
[2017-07-05 07:37] LABS: Basophils % 0.2 % (0.0-0.8); Eosinophils # 0.1 10*3/uL (0.0-0.87); Hematocrit 21.4 VOL% (42.0-52.0); Immature Granulocytes % 5.8 %; Immature Granulocytes Absolute 0.55 #; Lymphocytes # 0.2 10*3/uL (1.4-4.0); Lymphocytes % 2.2 % (21.2-54.2); Mean Corpuscular HGB Conc 34.6 GM/DL (32-36); Mean Corpuscular Hemoglobin 29 PG (27-34); Mean Corpuscular Volume 82.6 FL (87-102); Mean Platelet Volume 10.4 FL (9.6-12.0); Monocytes # 0.9 10*3/uL (0.11-0.8); Monocytes % 9.4 % (1.7-12.7); Neutrophils # 7.7 10*3/uL (1.4-7.4); Neutrophils % 81.4 % (38.7-73.9); Platelet Count 206 T/CUMM (130-400); Red Blood Count 2.59 MC/CUMM (3.8-5.5); Red Cell Distribution Width 17.4 % (9.3-17.3); White Blood Count 9.5 T/CUMM (4-12)
[2017-07-05 07:39] LABS: Hemoglobin 7.4 GM/DL (14.0-18.0)
[2017-07-05 07:57] LABS: Band Neutrophils 1 % (0-10); Hypochromasia 1+; Lymphocytes 5 % (20-55); Microcytosis 1+; Promyelocytes 1 %; Segmented Neutrophils 83 % (50-85); Total Cells Counted 100
[2017-07-05 07:58] LABS: Anisocytosis 1+; Ovalocytes Slight; Platelet Estimate Normal
[2017-07-05] MEDS ORDERED: SODIUM CHLORIDE 0.9% 1,000 ML IV PRN (08:58)
[2017-07-05] MEDS ORDERED: CLOPIDOGREL 75 MG TABLET PO SCH (09:00)
[2017-07-05] MEDS: DOPamine 800 MG/250 ML PREMIX IV SCH (09:38)
[2017-07-05] MEDS: PANTOPRAZOLE 40 MG VIAL IV SCH (09:38)
[2017-07-05] MEDS: ASPIRIN 300 MG SUPP RECTAL SCH (09:38)
[2017-07-05] MEDS ORDERED: GENTAMICIN INJ 80 MG in PREMIX 1 EACH IV PRN (11:17)
[2017-07-05] MEDS: CIPROFLOXACIN INJ 400 MG in PREMIX 1 EACH IV SCH (12:47)
[2017-07-05] MEDS: PROPOFOL 1,000 MG/100 ML BOTTLE IV SCH ×3 (14:04→23:26)
[2017-07-05] MEDS: FAT EMULSION 20% 250 ML IV SCH (14:04)
[2017-07-05] MEDS: NOREPINEPHRINE 8 MG in SODIUM CHLORIDE 0.9% 242 ML IV SCH (15:24)
[2017-07-05] MEDS: MULTIVITAMIN INJ 10 ML in AMINO ACIDS/DEXT/LYTES 5-15% 2,000 ML IV SCH (17:29)
[2017-07-05] MEDS: MORPHINE 2 MG/1 ML SYRINGE IV PRN (22:43)
[2017-07-06] MEDS: ALBUTEROL/IPRATROPIUM 3 ML NEB RESP TX SCH ×4 (01:49→19:39)
[2017-07-06] MEDS: MORPHINE 2 MG/1 ML SYRINGE IV PRN ×2 (02:42→21:30)
[2017-07-06] MEDS: PROPOFOL 1,000 MG/100 ML BOTTLE IV SCH ×4 (03:31→22:16)
[2017-07-06 04:21] LABS: ABG Base Excess -2.4 MMOL/L (-2.5-2.5); ABG HCO3 22.4 MMOL/L (20-26); ABG Oxygen Saturation 99.3 % (95-100); ABG PH 7.431 (7.35-7.45); ABG TCO2 19.7 MMOL/L (23-27); Allen Test Positive; Pt O2 Delivery Device Ventilator
[2017-07-06 04:48] LABS: Basophils % 0.2 % (0.0-0.8); Eosinophils # 0.1 10*3/uL (0.0-0.87); Eosinophils % 1.3 % (0.00-10.9); Hematocrit 26.1 VOL% (42.0-52.0); Hemoglobin 8.9 GM/DL (14.0-18.0); Immature Granulocytes % 5.8 %; Immature Granulocytes Absolute 0.51 #; Lymphocytes # 0.2 10*3/uL (1.4-4.0); Lymphocytes % 2.7 % (21.2-54.2); Mean Corpuscular HGB Conc 34.1 GM/DL (32-36); Mean Corpuscular Hemoglobin 28 PG (27-34); Mean Corpuscular Volume 83.4 FL (87-102); Mean Platelet Volume 10.5 FL (9.6-12.0); Monocytes # 1.1 10*3/uL (0.11-0.8); Neutrophils # 6.8 10*3/uL (1.4-7.4); Platelet Count 219 T/CUMM (130-400); Red Blood Count 3.13 MC/CUMM (3.8-5.5); Red Cell Distribution Width 16.9 % (9.3-17.3); White Blood Count 8.7 T/CUMM (4-12)
[2017-07-06 05:12] LABS: Band Neutrophils 1 % (0-10); Eosinophils 2 % (0-10); Hypochromasia 1+; Lymphocytes 8 % (20-55); Microcytosis 1+; Nucleated Red Blood Cells 1 (0-5); Segmented Neutrophils 76 % (50-85); Total Cells Counted 100
[2017-07-06 05:17] LABS: Calcium 8.1 MG/DL (8.5-10.1); Osmolality,Calculated 286.5 MOS/KG (273-304)
[2017-07-06 05:21] LABS: Prealbumin 20.6 MG/DL (20-40)
[2017-07-06] MEDS: INSULIN REGULAR 100 UNIT/ML SUBCUT SCH ×4 (06:11→23:52)
[2017-07-06] MEDS: metroNIDAZOLE INJ 500 MG in PREMIX 1 EACH IV SCH ×4 (06:16→23:59)
[2017-07-06] MEDS: ASPIRIN 300 MG SUPP RECTAL SCH (08:47)
[2017-07-06] MEDS: PANTOPRAZOLE 40 MG VIAL IV SCH (08:47)
[2017-07-06] MEDS: CIPROFLOXACIN INJ 400 MG in PREMIX 1 EACH IV SCH (10:47)
[2017-07-06] MEDS: AMIODARONE 200 MG TABLET PEG SCH (10:48)
[2017-07-06] MEDS ORDERED: MULTIVITAMIN INJ 10 ML in AMINO ACIDS/DEXT/LYTES 5-15% 2,000 ML IV SCH (17:00)
[2017-07-06] MEDS: METOCLOPRAMIDE 5 MG TABLET PO SCH (23:59)
[2017-07-07] MEDS: ALBUTEROL/IPRATROPIUM 3 ML NEB RESP TX SCH ×4 (01:05→18:01)
[2017-07-07] MEDS: MORPHINE 2 MG/1 ML SYRINGE IV PRN ×2 (03:30→20:21)
[2017-07-07] MEDS: PROPOFOL 1,000 MG/100 ML BOTTLE IV SCH ×5 (03:31→20:23)
[2017-07-07 04:11] LABS: Pt O2 Delivery Device Ventilator
[2017-07-07 04:12] LABS: ABG Base Excess -3.7 MMOL/L (-2.5-2.5); ABG HCO3 21.3 MMOL/L (20-26); ABG Oxygen Saturation 98.1 % (95-100); ABG PCO2 32.5 MM HG (35-48); ABG PH 7.404 (7.35-7.45); ABG TCO2 18.8 MMOL/L (23-27)
[2017-07-07 05:19] LABS: Basophils % 0.2 % (0.0-0.8); Eosinophils # 0.1 10*3/uL (0.0-0.87); Hematocrit 24.8 VOL% (42.0-52.0); Hemoglobin 8.7 GM/DL (14.0-18.0); Immature Granulocytes % 6.4 %; Immature Granulocytes Absolute 0.56 #; Lymphocytes # 0.4 10*3/uL (1.4-4.0); Lymphocytes % 4.6 % (21.2-54.2); Mean Corpuscular HGB Conc 35.1 GM/DL (32-36); Mean Corpuscular Hemoglobin 29 PG (27-34); Mean Corpuscular Volume 82.1 FL (87-102); Mean Platelet Volume 10.6 FL (9.6-12.0); Monocytes % 11.8 % (1.7-12.7); Neutrophils # 6.7 10*3/uL (1.4-7.4); Platelet Count 263 T/CUMM (130-400); Red Blood Count 3.02 MC/CUMM (3.8-5.5); White Blood Count 8.8 T/CUMM (4-12)
[2017-07-07 05:57] LABS: Calcium 8.3 MG/DL (8.5-10.1); Osmolality,Calculated 287.8 MOS/KG (273-304); Potassium 4.8 MMOL/L (3.5-5.1)
[2017-07-07 06:03] LABS: Band Neutrophils 6 % (0-10); Eosinophils 1 % (0-10); Giant Platelets Few; Hypochromasia 1+; Lymphocytes 3 % (20-55); Ovalocytes Slight; Platelet Estimate Adequate; Segmented Neutrophils 81 % (50-85); Total Cells Counted 100
[2017-07-07 06:04] LABS: Microcytosis Slight
[2017-07-07] MEDS: METOCLOPRAMIDE 5 MG TABLET PO SCH ×4 (06:28→23:55)
[2017-07-07] MEDS: INSULIN REGULAR 100 UNIT/ML SUBCUT SCH ×4 (06:28→23:55)
[2017-07-07] MEDS: metroNIDAZOLE INJ 500 MG in PREMIX 1 EACH IV SCH ×4 (06:28→23:54)
[2017-07-07 07:51] LABS: Albumin 2.4 G/DL (3.4-5.0); Bilirubin,Direct 8.52 MG/DL (0.0-0.20); Bilirubin,Indirect 1.8 MG/DL (0.0-1.0); Bilirubin,Total 10.3 MG/DL (0.2-1.0); Total Protein 4.8 G/DL (6.4-8.3)
[2017-07-07] MEDS: ASPIRIN 325 MG TABLET NG SCH (08:31)
[2017-07-07] MEDS: AMIODARONE 200 MG TABLET PEG SCH (08:31)
[2017-07-07] MEDS: PANTOPRAZOLE 40 MG VIAL IV SCH (08:31)
[2017-07-07] MEDS ORDERED: SODIUM CHLORIDE 0.9% 1,000 ML IV PRN ×2 (12:56→13:20)
[2017-07-07] MEDS: HEPARIN 5,000 UNIT/1 ML VIAL SUBCUT SCH ×2 (13:14→20:21)
[2017-07-07] MEDS: CIPROFLOXACIN INJ 400 MG in PREMIX 1 EACH IV SCH (13:15)
[2017-07-07] MEDS: ONDANSETRON 4 MG/2 ML VIAL IV PRN (22:13)
[2017-07-08] MEDS: ALBUTEROL/IPRATROPIUM 3 ML NEB RESP TX SCH ×4 (00:18→19:30)
[2017-07-08] MEDS: PROPOFOL 1,000 MG/100 ML BOTTLE IV SCH ×5 (01:16→21:54)
[2017-07-08] MEDS: HEPARIN 5,000 UNIT/1 ML VIAL SUBCUT SCH ×3 (02:47→19:18)
[2017-07-08 02:49] LABS: Basophils % 0.5 % (0.0-0.8); Eosinophils # 0.1 10*3/uL (0.0-0.87); Hematocrit 31.3 VOL% (42.0-52.0); Hemoglobin 11.3 GM/DL (14.0-18.0); Immature Granulocytes % 7.5 %; Immature Granulocytes Absolute 0.67 #; Lymphocytes # 0.3 10*3/uL (1.4-4.0); Lymphocytes % 2.9 % (21.2-54.2); Mean Corpuscular HGB Conc 36.1 GM/DL (32-36); Mean Corpuscular Hemoglobin 29 PG (27-34); Mean Corpuscular Volume 80.5 FL (87-102); Mean Platelet Volume 10.4 FL (9.6-12.0); Monocytes % 11.4 % (1.7-12.7); Neutrophils # 6.8 10*3/uL (1.4-7.4); Neutrophils % 76.7 % (38.7-73.9); Platelet Count 251 T/CUMM (130-400); Red Blood Count 3.89 MC/CUMM (3.8-5.5); Red Cell Distribution Width 16.4 % (9.3-17.3); White Blood Count 8.9 T/CUMM (4-12)
[2017-07-08 05:54] LABS: Calcium 8.1 MG/DL (8.5-10.1); Osmolality,Calculated 282.4 MOS/KG (273-304); Potassium 4.6 MMOL/L (3.5-5.1)
[2017-07-08 06:10] LABS: ABG Base Excess -0.6 MMOL/L (-2.5-2.5); ABG HCO3 23.9 MMOL/L (20-26); ABG Oxygen Saturation 98.2 % (95-100); ABG PCO2 34.8 MM HG (35-48); ABG PH 7.431 (7.35-7.45); ABG TCO2 20.5 MMOL/L (23-27)
[2017-07-08] MEDS: INSULIN REGULAR 100 UNIT/ML SUBCUT SCH ×4 (06:20→23:35)
[2017-07-08] MEDS: metroNIDAZOLE INJ 500 MG in PREMIX 1 EACH IV SCH (06:27)
[2017-07-08] MEDS: METOCLOPRAMIDE 5 MG TABLET PO SCH ×4 (06:27→23:29)
[2017-07-08] MEDS: MORPHINE 2 MG/1 ML SYRINGE IV PRN ×2 (06:28→23:29)
[2017-07-08 06:44] LABS: Band Neutrophils 7 % (0-10); Eosinophils 1 % (0-10); Giant Platelets Few; Lymphocytes 2 % (20-55); Ovalocytes Slight; Platelet Estimate Adequate; Segmented Neutrophils 83 % (50-85); Total Cells Counted 100
[2017-07-08 06:45] LABS: Burr Cells Slight; Hypochromasia Slight
[2017-07-08] MEDS: AMIODARONE 200 MG TABLET PEG SCH (09:41)
[2017-07-08] MEDS: MULTIVITAMIN (BEROCCA) TABLET PO SCH (09:41)
[2017-07-08] MEDS: ASPIRIN 325 MG TABLET NG SCH (09:41)
[2017-07-08] MEDS: PANTOPRAZOLE 40 MG VIAL IV SCH (09:41)
[2017-07-08] MEDS ORDERED: ALBUMIN 25% 25 GM in PREMIX 1 EACH IV ONE (10:01)
[2017-07-08] MEDS: CIPROFLOXACIN INJ 400 MG in PREMIX 1 EACH IV SCH (10:11)
[2017-07-08] MEDS ORDERED: DEXTROSE 10% 1,000 ML IV PRN (17:00)
[2017-07-08] MEDS: MULTIVITAMIN INJ 10 ML in AMINO ACIDS/DEXT/LYTES 5-15% 2,000 ML IV SCH (17:22)
[2017-07-09] MEDS: ALBUTEROL/IPRATROPIUM 3 ML NEB RESP TX SCH ×4 (02:00→18:00)
[2017-07-09] MEDS: HEPARIN 5,000 UNIT/1 ML VIAL SUBCUT SCH ×3 (03:09→19:39)
[2017-07-09] MEDS: PROPOFOL 1,000 MG/100 ML BOTTLE IV SCH ×5 (03:12→20:54)
[2017-07-09 03:58] LABS: ABG Base Excess -2.3 MMOL/L (-2.5-2.5); ABG HCO3 22.5 MMOL/L (20-26); ABG Oxygen Saturation 98.9 % (95-100); ABG PCO2 35.9 MM HG (35-48); ABG PH 7.397 (7.35-7.45); ABG TCO2 19.9 MMOL/L (23-27); Allen Test Positive; Pt O2 Delivery Device Ventilator
[2017-07-09] MEDS: METOCLOPRAMIDE 5 MG TABLET PO SCH ×3 (05:38→17:17)
[2017-07-09 05:42] LABS: Basophils # 0.1 10*3/uL (0.0-0.2); Basophils % 1.2 % (0.0-0.8); Eosinophils # 0.1 10*3/uL (0.0-0.87); Eosinophils % 1.2 % (0.00-10.9); Hematocrit 29.8 VOL% (42.0-52.0); Hemoglobin 10.3 GM/DL (14.0-18.0); Immature Granulocytes Absolute 1.07 #; Lymphocytes # 0.3 10*3/uL (1.4-4.0); Lymphocytes % 3.7 % (21.2-54.2); Mean Corpuscular HGB Conc 34.6 GM/DL (32-36); Mean Corpuscular Hemoglobin 29 PG (27-34); Mean Corpuscular Volume 83.9 FL (87-102); Mean Platelet Volume 10.4 FL (9.6-12.0); Monocytes % 12.7 % (1.7-12.7); Neutrophils # 5.1 10*3/uL (1.4-7.4); Neutrophils % 67.2 % (38.7-73.9); Platelet Count 261 T/CUMM (130-400); Red Blood Count 3.55 MC/CUMM (3.8-5.5); Red Cell Distribution Width 16.6 % (9.3-17.3); White Blood Count 7.6 T/CUMM (4-12)
[2017-07-09] MEDS: INSULIN REGULAR 100 UNIT/ML SUBCUT SCH ×3 (05:52→17:34)
[2017-07-09 06:27] LABS: Band Neutrophils 4 % (0-10); Eosinophils 3 % (0-10); Giant Platelets Few; Hypochromasia 1+; Lymphocytes 7 % (20-55); Microcytosis Slight; Ovalocytes Slight; Platelet Estimate Adequate; Segmented Neutrophils 71 % (50-85); Total Cells Counted 100
[2017-07-09 06:28] LABS: Albumin 2.2 G/DL (3.4-5.0); Calcium 8.6 MG/DL (8.5-10.1); Osmolality,Calculated 282.7 MOS/KG (273-304); Potassium 4.7 MMOL/L (3.5-5.1); Total Protein 4.9 G/DL (6.4-8.3)
[2017-07-09] MEDS: ASPIRIN 325 MG TABLET NG SCH (08:07)
[2017-07-09] MEDS: AMIODARONE 200 MG TABLET PEG SCH (08:07)
[2017-07-09] MEDS: MULTIVITAMIN (BEROCCA) TABLET PO SCH (08:07)
[2017-07-09] MEDS: PANTOPRAZOLE 40 MG VIAL IV SCH (08:07)
[2017-07-09] MEDS: CIPROFLOXACIN INJ 400 MG in PREMIX 1 EACH IV SCH (11:49)
[2017-07-09] MEDS: MORPHINE 2 MG/1 ML SYRINGE IV PRN ×2 (15:17→21:21)
[2017-07-09] MEDS: MULTIVITAMIN INJ 10 ML in AMINO ACIDS/DEXT/LYTES 5-15% 2,000 ML IV SCH (17:19)
[2017-07-10] MEDS: INSULIN REGULAR 100 UNIT/ML SUBCUT SCH ×4 (00:08→18:30)
[2017-07-10] MEDS: METOCLOPRAMIDE 5 MG TABLET PO SCH ×4 (00:09→18:12)
[2017-07-10] MEDS: ALBUTEROL/IPRATROPIUM 3 ML NEB RESP TX SCH ×4 (00:36→20:04)
[2017-07-10] MEDS: PROPOFOL 1,000 MG/100 ML BOTTLE IV SCH ×5 (01:11→22:45)
[2017-07-10 03:08] LABS: Basophils % 0.6 % (0.0-0.8); Eosinophils # 0.1 10*3/uL (0.0-0.87); Eosinophils % 2.1 % (0.00-10.9); Hematocrit 28.9 VOL% (42.0-52.0); Hemoglobin 10.3 GM/DL (14.0-18.0); Immature Granulocytes % 22.9 %; Immature Granulocytes Absolute 1.44 #; Lymphocytes # 0.2 10*3/uL (1.4-4.0); Lymphocytes % 3.7 % (21.2-54.2); Mean Corpuscular HGB Conc 35.6 GM/DL (32-36); Mean Corpuscular Hemoglobin 29 PG (27-34); Mean Corpuscular Volume 81.2 FL (87-102); Mean Platelet Volume 10.4 FL (9.6-12.0); Monocytes # 0.8 10*3/uL (0.11-0.8); Monocytes % 12.9 % (1.7-12.7); Neutrophils # 3.6 10*3/uL (1.4-7.4); Neutrophils % 57.8 % (38.7-73.9); Platelet Count 240 T/CUMM (130-400); Red Blood Count 3.56 MC/CUMM (3.8-5.5); Red Cell Distribution Width 16.8 % (9.3-17.3); White Blood Count 6.3 T/CUMM (4-12)
[2017-07-10] MEDS: HEPARIN 5,000 UNIT/1 ML VIAL SUBCUT SCH ×3 (03:24→21:28)
[2017-07-10 03:35] LABS: Calcium 8.6 MG/DL (8.5-10.1); Osmolality,Calculated 285.9 MOS/KG (273-304); Potassium 4.6 MMOL/L (3.5-5.1)
[2017-07-10 03:41] LABS: ABG Base Excess -3.6 MMOL/L (-2.5-2.5); ABG HCO3 21.1 MMOL/L (20-26); ABG Oxygen Saturation 79.8 % (95-100); ABG PH 7.331 (7.35-7.45); ABG PO2 47.3 MM HG (80-95); ABG TCO2 20.2 MMOL/L (23-27)
[2017-07-10 04:07] LABS: Prealbumin 18.2 MG/DL (20-40)
[2017-07-10 04:42] LABS: Band Neutrophils 2 % (0-10); Eosinophils 2 % (0-10); Lymphocytes 9 % (20-55); Metamyelocytes 5 %; Myelocytes 7 %; Segmented Neutrophils 62 % (50-85); Total Cells Counted 100
[2017-07-10 04:43] LABS: Hypochromasia 1+; Microcytosis 1+
[2017-07-10 04:44] LABS: Platelet Estimate Normal
[2017-07-10 05:47] LABS: ABG HCO3 21.1 MMOL/L (20-26); ABG Oxygen Saturation 98.3 % (95-100); ABG PCO2 37.5 MM HG (35-48); ABG PH 7.357 (7.35-7.45); ABG TCO2 19.1 MMOL/L (23-27)
[2017-07-10] MEDS: ASPIRIN 325 MG TABLET NG SCH (08:07)
[2017-07-10] MEDS: MULTIVITAMIN (BEROCCA) TABLET PO SCH (08:08)
[2017-07-10] MEDS: PANTOPRAZOLE 40 MG VIAL IV SCH (08:08)
[2017-07-10] MEDS: AMIODARONE 200 MG TABLET PEG SCH (08:08)
[2017-07-10] MEDS: FLUCONAZOLE INJ 100 MG in IV BAG 1 EACH IV SCH (09:44)
[2017-07-10] MEDS: LOSARTAN 25 MG TABLET PO SCH (09:44)
[2017-07-10] MEDS: CIPROFLOXACIN INJ 400 MG in PREMIX 1 EACH IV SCH (10:39)
[2017-07-10] MEDS: MULTIVITAMIN INJ 10 ML in AMINO ACIDS/DEXT/LYTES 5-15% 2,000 ML IV SCH (16:49)
[2017-07-11] MEDS: ALBUTEROL/IPRATROPIUM 3 ML NEB RESP TX SCH ×4 (00:18→19:30)
[2017-07-11] MEDS: INSULIN REGULAR 100 UNIT/ML SUBCUT SCH ×5 (00:39→23:19)
[2017-07-11] MEDS: METOCLOPRAMIDE 5 MG TABLET PO SCH ×5 (00:43→23:19)
[2017-07-11] MEDS: PROPOFOL 1,000 MG/100 ML BOTTLE IV SCH ×2 (02:57→17:42)
[2017-07-11 04:46] LABS: ABG Base Excess -1.2 MMOL/L (-2.5-2.5); ABG HCO3 23.4 MMOL/L (20-26); ABG Oxygen Saturation 98.9 % (95-100); ABG PCO2 37.2 MM HG (35-48); ABG PH 7.403 (7.35-7.45); ABG TCO2 20.8 MMOL/L (23-27)
[2017-07-11] MEDS: HEPARIN 5,000 UNIT/1 ML VIAL SUBCUT SCH ×3 (04:46→20:28)
[2017-07-11 08:13] LABS: Basophils % 0.3 % (0.0-0.8); Eosinophils # 0.1 10*3/uL (0.0-0.87); Eosinophils % 0.9 % (0.00-10.9); Hematocrit 30.2 VOL% (42.0-52.0); Hemoglobin 10.5 GM/DL (14.0-18.0); Immature Granulocytes % 30.2 %; Immature Granulocytes Absolute 3.49 #; Lymphocytes # 0.4 10*3/uL (1.4-4.0); Lymphocytes % 3.2 % (21.2-54.2); Mean Corpuscular HGB Conc 34.8 GM/DL (32-36); Mean Corpuscular Hemoglobin 29 PG (27-34); Mean Corpuscular Volume 82.5 FL (87-102); Mean Platelet Volume 10.3 FL (9.6-12.0); Monocytes # 1.1 10*3/uL (0.11-0.8); Monocytes % 9.1 % (1.7-12.7); Neutrophils # 6.5 10*3/uL (1.4-7.4); Neutrophils % 56.3 % (38.7-73.9); Platelet Count 268 T/CUMM (130-400); Red Blood Count 3.66 MC/CUMM (3.8-5.5); Red Cell Distribution Width 16.9 % (9.3-17.3); White Blood Count 11.6 T/CUMM (4-12)
[2017-07-11] MEDS: MULTIVITAMIN (BEROCCA) TABLET PO SCH (08:13)
[2017-07-11] MEDS: AMIODARONE 200 MG TABLET PEG SCH (08:13)
[2017-07-11] MEDS: ASPIRIN 325 MG TABLET NG SCH (08:13)
[2017-07-11] MEDS: FLUCONAZOLE INJ 100 MG in IV BAG 1 EACH IV SCH (08:13)
[2017-07-11] MEDS: LOSARTAN 25 MG TABLET PO SCH (08:13)
[2017-07-11] MEDS: PANTOPRAZOLE 40 MG VIAL IV SCH (08:13)
[2017-07-11 08:41] LABS: Band Neutrophils 23 % (0-10); Eosinophils 4 % (0-10); Hypochromasia 1+; Lymphocytes 1 % (20-55); Myelocytes 6 %; Ovalocytes Slight; Platelet Estimate Adequate; Segmented Neutrophils 56 % (50-85); Total Cells Counted 100
[2017-07-11 08:42] LABS: Giant Platelets Few; Microcytosis 1+
[2017-07-11] MEDS ORDERED: TICAGRELOR 90 MG TABLET PO SCH (09:00)
[2017-07-11] MEDS ORDERED: SILVER NITRATE STICK 1 EACH TOP ONE (12:24)
[2017-07-11] MEDS: MULTIVITAMIN INJ 10 ML in AMINO ACIDS/DEXT/LYTES 5-15% 2,000 ML IV SCH (17:10)
[2017-07-12] MEDS: ALBUTEROL/IPRATROPIUM 3 ML NEB RESP TX SCH ×4 (01:14→19:12)
[2017-07-12] MEDS: HEPARIN 5,000 UNIT/1 ML VIAL SUBCUT SCH (04:29)
[2017-07-12 04:33] LABS: Basophils # 0.1 10*3/uL (0.0-0.2); Basophils % 0.8 % (0.0-0.8); Eosinophils # 0.1 10*3/uL (0.0-0.87); Eosinophils % 0.4 % (0.00-10.9); Hematocrit 27.6 VOL% (42.0-52.0); Hemoglobin 9.5 GM/DL (14.0-18.0); Immature Granulocytes % 32.6 %; Immature Granulocytes Absolute 4.28 #; Lymphocytes # 0.5 10*3/uL (1.4-4.0); Lymphocytes % 3.4 % (21.2-54.2); Mean Corpuscular HGB Conc 34.4 GM/DL (32-36); Mean Corpuscular Hemoglobin 28 PG (27-34); Mean Corpuscular Volume 81.7 FL (87-102); Mean Platelet Volume 10.4 FL (9.6-12.0); Monocytes # 1.2 10*3/uL (0.11-0.8); Monocytes % 9.2 % (1.7-12.7); NRBC # 0.02 10*3/uL; Neutrophils # 7.1 10*3/uL (1.4-7.4); Neutrophils % 53.6 % (38.7-73.9); Platelet Count 268 T/CUMM (130-400); Red Blood Count 3.38 MC/CUMM (3.8-5.5); Red Cell Distribution Width 16.8 % (9.3-17.3); White Blood Count 13.1 T/CUMM (4-12)
[2017-07-12 04:58] LABS: Calcium 8.8 MG/DL (8.5-10.1); Osmolality,Calculated 278.1 MOS/KG (273-304); Potassium 5.5 MMOL/L (3.5-5.1)
[2017-07-12] MEDS ORDERED: MORPHINE 2 MG/1 ML SYRINGE ONE (05:07)
[2017-07-12] MEDS: MORPHINE 2 MG/1 ML SYRINGE IV PRN ×3 (05:12→20:36)
[2017-07-12 05:26] LABS: Band Neutrophils 9 % (0-10); Lymphocytes 12 % (20-55); Metamyelocytes 3 %; Myelocytes 5 %; Promyelocytes 2 %; Segmented Neutrophils 59 % (50-85); Total Cells Counted 100
[2017-07-12 05:28] LABS: Hypochromasia 1+; Microcytosis 1+; Platelet Estimate Normal
[2017-07-12] MEDS: INSULIN REGULAR 100 UNIT/ML SUBCUT SCH ×3 (05:38→18:48)
[2017-07-12] MEDS: METOCLOPRAMIDE 5 MG TABLET PO SCH ×3 (05:50→18:49)
[2017-07-12 08:10] LABS: ABG Base Excess -3.5 MMOL/L (-2.5-2.5); ABG HCO3 21.4 MMOL/L (20-26); ABG Oxygen Saturation 90.9 % (95-100); ABG PH 7.368 (7.35-7.45); ABG PO2 66.5 MM HG (80-95); ABG TCO2 19.6 MMOL/L (23-27)
[2017-07-12] MEDS ORDERED: SODIUM CHLORIDE 0.9% 1,000 ML IV PRN (08:29)
[2017-07-12] MEDS: PROPOFOL 1,000 MG/100 ML BOTTLE IV SCH ×3 (10:00→21:22)
[2017-07-12] MEDS ORDERED: MIDAZOLAM 2 MG/2 ML VIAL ONE (10:20)
[2017-07-12] MEDS ORDERED: fentaNYL 100 MCG/2 ML VIAL ONE (10:20)
[2017-07-12] MEDS ORDERED: SEVOFLURANE 1 UNIT/15 MINUTE INH ONE (10:20)
[2017-07-12] MEDS ORDERED: PHENYLEPHRINE 10 MG/1 ML VIAL IV ONE (10:20)
[2017-07-12] MEDS ORDERED: ETOMIDATE 40 MG/20 ML VIAL IV ONE (10:20)
[2017-07-12] MEDS ORDERED: ROCURONIUM 100 MG/10 ML VIAL IV ONE (10:21)
[2017-07-12] MEDS ORDERED: SODIUM CHLORIDE 0.9% 500 ML IV ONE (10:21)
[2017-07-12] MEDS: ASPIRIN 325 MG TABLET NG SCH (10:45)
[2017-07-12] MEDS: MULTIVITAMIN (BEROCCA) TABLET PO SCH (10:45)
[2017-07-12] MEDS: LOSARTAN 25 MG TABLET PO SCH (10:45)
[2017-07-12] MEDS: AMIODARONE 200 MG TABLET PEG SCH (10:45)
[2017-07-12] MEDS: PANTOPRAZOLE 40 MG VIAL IV SCH (11:20)
[2017-07-12] MEDS: FLUCONAZOLE INJ 100 MG in IV BAG 1 EACH IV SCH (11:20)
[2017-07-12] MEDS: METOPROLOL TARTRATE 25 MG TABLET PO SCH ×2 (14:26→22:05)
[2017-07-12] MEDS: MULTIVITAMIN INJ 10 ML in AMINO ACIDS/DEXT/LYTES 5-15% 2,000 ML IV SCH (18:25)
[2017-07-12] MEDS ORDERED: NOREPINEPHRINE 4 MG/4 ML VIAL IV ONE (21:43)
[2017-07-12] MEDS: NOREPINEPHRINE 8 MG in SODIUM CHLORIDE 0.9% 242 ML IV SCH (21:45)
[2017-07-12] MEDS: ONDANSETRON 4 MG/2 ML VIAL IV PRN (22:36)
[2017-07-13] MEDS: ALBUTEROL/IPRATROPIUM 3 ML NEB RESP TX SCH ×4 (00:34→19:25)
[2017-07-13] MEDS: METOCLOPRAMIDE 5 MG TABLET PO SCH ×4 (00:35→17:33)
[2017-07-13] MEDS: INSULIN REGULAR 100 UNIT/ML SUBCUT SCH ×4 (00:35→18:36)
[2017-07-13] MEDS: PROPOFOL 1,000 MG/100 ML BOTTLE IV SCH ×7 (01:22→22:13)
[2017-07-13 03:31] LABS: ABG Base Excess -0.6 MMOL/L (-2.5-2.5); ABG HCO3 23.9 MMOL/L (20-26); ABG Oxygen Saturation 97.6 % (95-100); ABG PCO2 36.7 MM HG (35-48); ABG PH 7.417 (7.35-7.45); ABG PO2 91.9 MM HG (80-95); ABG TCO2 22.1 MMOL/L (23-27); Allen Test Positive; Pt O2 Delivery Device Ventilator
[2017-07-13 06:26] LABS: Basophils # 0.1 10*3/uL (0.0-0.2); Basophils % 0.4 % (0.0-0.8); Eosinophils # 0.1 10*3/uL (0.0-0.87); Eosinophils % 1.1 % (0.00-10.9); Hematocrit 22.8 VOL% (42.0-52.0); Hemoglobin 7.9 GM/DL (14.0-18.0); Immature Granulocytes % 27.1 %; Immature Granulocytes Absolute 3.58 #; Lymphocytes # 0.3 10*3/uL (1.4-4.0); Lymphocytes % 2.2 % (21.2-54.2); Mean Corpuscular HGB Conc 34.6 GM/DL (32-36); Mean Corpuscular Hemoglobin 29 PG (27-34); Mean Corpuscular Volume 82.9 FL (87-102); Mean Platelet Volume 9.7 FL (9.6-12.0); Monocytes # 1.3 10*3/uL (0.11-0.8); Monocytes % 9.8 % (1.7-12.7); Neutrophils # 7.8 10*3/uL (1.4-7.4); Neutrophils % 59.4 % (38.7-73.9); Platelet Count 218 T/CUMM (130-400); Red Blood Count 2.75 MC/CUMM (3.8-5.5); Red Cell Distribution Width 17.5 % (9.3-17.3); White Blood Count 13.2 T/CUMM (4-12)
[2017-07-13 06:48] LABS: Band Neutrophils 12 % (0-10); Eosinophils 1 % (0-10); Hypochromasia 1+; Lymphocytes 3 % (20-55); Myelocytes 4 %; Ovalocytes Slight; Platelet Estimate Adequate; Segmented Neutrophils 71 % (50-85); Total Cells Counted 100
[2017-07-13 06:49] LABS: Giant Platelets Few; Microcytosis Slight
[2017-07-13] MEDS: MORPHINE 2 MG/1 ML SYRINGE IV PRN (06:58)
[2017-07-13 07:12] LABS: Calcium 8.2 MG/DL (8.5-10.1); Osmolality,Calculated 276.7 MOS/KG (273-304); Potassium 4.8 MMOL/L (3.5-5.1)
[2017-07-13 08:21] LABS: PT Patient Result 10.7 SECS
[2017-07-13 08:33] LABS: Partial Thromboplastin Time 47.1 SECS (0-40)
[2017-07-13] MEDS: PANTOPRAZOLE 40 MG VIAL IV SCH ×2 (09:56→21:06)
[2017-07-13] MEDS: LOSARTAN 25 MG TABLET PO SCH (09:57)
[2017-07-13] MEDS: ASPIRIN 325 MG TABLET NG SCH (09:57)
[2017-07-13] MEDS: METOPROLOL TARTRATE 25 MG TABLET PO SCH ×2 (09:57→21:27)
[2017-07-13] MEDS: AMIODARONE 200 MG TABLET PEG SCH (09:57)
[2017-07-13] MEDS: MULTIVITAMIN (BEROCCA) TABLET PO SCH (09:57)
[2017-07-13] MEDS: FLUCONAZOLE INJ 100 MG in IV BAG 1 EACH IV SCH (09:58)
[2017-07-13] MEDS: HEPARIN 5,000 UNIT/1 ML VIAL SUBCUT SCH (10:47)
[2017-07-13] MEDS: MULTIVITAMIN INJ 10 ML in AMINO ACIDS/DEXT/LYTES 5-15% 2,000 ML IV SCH (17:32)
[2017-07-13 17:45] LABS: Hematocrit 27.2 VOL% (42.0-52.0); Hemoglobin 9.6 GM/DL (14.0-18.0)
[2017-07-13] MEDS: NOREPINEPHRINE 8 MG in SODIUM CHLORIDE 0.9% 242 ML IV SCH (21:29)
[2017-07-14] MEDS: INSULIN REGULAR 100 UNIT/ML SUBCUT SCH ×5 (00:59→23:39)
[2017-07-14] MEDS: METOCLOPRAMIDE 5 MG TABLET PO SCH ×5 (01:00→23:39)
[2017-07-14] MEDS: PROPOFOL 1,000 MG/100 ML BOTTLE IV SCH ×6 (01:52→20:45)
[2017-07-14] MEDS: ALBUTEROL/IPRATROPIUM 3 ML NEB RESP TX SCH ×4 (01:54→19:28)
[2017-07-14 03:34] LABS: ABG Base Excess -2.3 MMOL/L (-2.5-2.5); ABG HCO3 21.9 MMOL/L (20-26); ABG Oxygen Saturation 98.7 % (95-100); ABG PCO2 35.9 MM HG (35-48); ABG PH 7.404 (7.35-7.45); Allen Test Positive; Pt O2 Delivery Device Ventilator
[2017-07-14 06:31] LABS: Basophils # 0.1 10*3/uL (0.0-0.2); Basophils % 0.8 % (0.0-0.8); Eosinophils # 0.2 10*3/uL (0.0-0.87); Eosinophils % 2.1 % (0.00-10.9); Hematocrit 27.1 VOL% (42.0-52.0); Hemoglobin 9.3 GM/DL (14.0-18.0); Immature Granulocytes % 30.7 %; Immature Granulocytes Absolute 3.52 #; Lymphocytes # 0.3 10*3/uL (1.4-4.0); Lymphocytes % 2.7 % (21.2-54.2); Mean Corpuscular HGB Conc 34.3 GM/DL (32-36); Mean Corpuscular Hemoglobin 28 PG (27-34); Mean Corpuscular Volume 82.9 FL (87-102); Mean Platelet Volume 9.8 FL (9.6-12.0); Monocytes # 1.1 10*3/uL (0.11-0.8); Monocytes % 9.9 % (1.7-12.7); Neutrophils # 6.2 10*3/uL (1.4-7.4); Neutrophils % 53.8 % (38.7-73.9); Platelet Count 181 T/CUMM (130-400); Red Blood Count 3.27 MC/CUMM (3.8-5.5); Red Cell Distribution Width 17.2 % (9.3-17.3); White Blood Count 11.5 T/CUMM (4-12)
[2017-07-14 06:55] LABS: Calcium 8.7 MG/DL (8.5-10.1); Osmolality,Calculated 277.9 MOS/KG (273-304); Potassium 5.1 MMOL/L (3.5-5.1)
[2017-07-14 07:04] LABS: Band Neutrophils 6 % (0-10); Eosinophils 3 % (0-10); Lymphocytes 12 % (20-55); Metamyelocytes 9 %; Myelocytes 3 %; Promyelocytes 1 %; Segmented Neutrophils 57 % (50-85); Total Cells Counted 100
[2017-07-14 07:05] LABS: Hypochromasia 1+; Microcytosis 1+; Platelet Estimate Adequate; Target Cells Slight
[2017-07-14] MEDS: MULTIVITAMIN (BEROCCA) TABLET PO SCH (08:27)
[2017-07-14] MEDS: METOPROLOL TARTRATE 25 MG TABLET PO SCH ×2 (08:27→21:21)
[2017-07-14] MEDS: AMIODARONE 200 MG TABLET PEG SCH (08:27)
[2017-07-14] MEDS: LOSARTAN 25 MG TABLET PO SCH (08:27)
[2017-07-14] MEDS: ASPIRIN 325 MG TABLET NG SCH (08:27)
[2017-07-14] MEDS: PANTOPRAZOLE 40 MG VIAL IV SCH ×2 (08:28→20:00)
[2017-07-14] MEDS: MICAFUNGIN 100 MG in SODIUM CHLORIDE 0.9% 100 ML IV SCH (08:43)
[2017-07-14] MEDS: MULTIVITAMIN INJ 10 ML in AMINO ACIDS/DEXT/LYTES 5-15% 2,000 ML IV SCH (17:22)
[2017-07-14] MEDS: ZINC OXIDE PASTE 113 GM TUBE TOP SCH ×2 (17:23→20:00)
[2017-07-14] MEDS: NOREPINEPHRINE 8 MG in SODIUM CHLORIDE 0.9% 242 ML IV SCH (21:21)
[2017-07-15] MEDS: ALBUTEROL/IPRATROPIUM 3 ML NEB RESP TX SCH ×4 (00:11→18:58)
[2017-07-15] MEDS: PROPOFOL 1,000 MG/100 ML BOTTLE IV SCH ×7 (01:02→22:38)
[2017-07-15 04:12] LABS: ABG HCO3 24.4 MMOL/L (20-26); ABG Oxygen Saturation 99.2 % (95-100); ABG PCO2 37.1 MM HG (35-48); ABG TCO2 20.7 MMOL/L (23-27); Allen Test Positive; Pt O2 Delivery Device Ventilator
[2017-07-15] MEDS: METOCLOPRAMIDE 5 MG TABLET PO SCH ×3 (05:40→18:07)
[2017-07-15] MEDS: INSULIN REGULAR 100 UNIT/ML SUBCUT SCH ×4 (05:40→23:57)
[2017-07-15 05:48] LABS: Basophils # 0.1 10*3/uL (0.0-0.2); Basophils % 0.6 % (0.0-0.8); Eosinophils # 0.3 10*3/uL (0.0-0.87); Eosinophils % 1.9 % (0.00-10.9); Hematocrit 26.3 VOL% (42.0-52.0); Hemoglobin 9.7 GM/DL (14.0-18.0); Immature Granulocytes % 32.1 %; Immature Granulocytes Absolute 4.31 #; Lymphocytes # 0.4 10*3/uL (1.4-4.0); Lymphocytes % 2.9 % (21.2-54.2); Mean Corpuscular HGB Conc 36.9 GM/DL (32-36); Mean Corpuscular Hemoglobin 29 PG (27-34); Mean Corpuscular Volume 79.7 FL (87-102); Mean Platelet Volume 10.1 FL (9.6-12.0); Monocytes # 1.2 10*3/uL (0.11-0.8); Monocytes % 9.2 % (1.7-12.7); Neutrophils # 7.2 10*3/uL (1.4-7.4); Neutrophils % 53.3 % (38.7-73.9); Platelet Count 184 T/CUMM (130-400); Red Cell Distribution Width 17.4 % (9.3-17.3); White Blood Count 13.4 T/CUMM (4-12)
[2017-07-15 06:02] LABS: Calcium 8.1 MG/DL (8.5-10.1); Osmolality,Calculated 275.7 MOS/KG (273-304); Potassium 4.5 MMOL/L (3.5-5.1)
[2017-07-15] MEDS: MICAFUNGIN 100 MG in SODIUM CHLORIDE 0.9% 100 ML IV SCH (06:12)
[2017-07-15 06:50] LABS: Band Neutrophils 10 % (0-10); Eosinophils 3 % (0-10); Hypochromasia 1+; Lymphocytes 10 % (20-55); Metamyelocytes 4 %; Microcytosis 1+; Myelocytes 2 %; Nucleated Red Blood Cells 1 (0-5); Promyelocytes 3 %; Segmented Neutrophils 60 % (50-85); Target Cells Slight; Total Cells Counted 100
[2017-07-15 06:51] LABS: Platelet Estimate Adequate; Tear Drop Cells Slight
[2017-07-15] MEDS: ASPIRIN 325 MG TABLET NG SCH (09:24)
[2017-07-15] MEDS: METOPROLOL TARTRATE 25 MG TABLET PO SCH ×2 (09:24→20:31)
[2017-07-15] MEDS: MULTIVITAMIN (BEROCCA) TABLET PO SCH (09:24)
[2017-07-15] MEDS: LOSARTAN 25 MG TABLET PO SCH (09:24)
[2017-07-15] MEDS: ZINC OXIDE PASTE 113 GM TUBE TOP SCH ×2 (09:25→22:34)
[2017-07-15] MEDS: AMIODARONE 200 MG TABLET PEG SCH (09:25)
[2017-07-15] MEDS: PANTOPRAZOLE 40 MG VIAL IV SCH ×2 (09:25→20:30)
[2017-07-15] MEDS: MULTIVITAMIN INJ 10 ML in AMINO ACIDS/DEXT/LYTES 5-15% 2,000 ML IV SCH (17:48)
[2017-07-15] MEDS: NOREPINEPHRINE 8 MG in SODIUM CHLORIDE 0.9% 242 ML IV SCH (23:57)
[2017-07-16] MEDS: ALBUTEROL/IPRATROPIUM 3 ML NEB RESP TX SCH ×4 (00:05→19:56)
[2017-07-16] MEDS: METOCLOPRAMIDE 5 MG TABLET PO SCH ×5 (00:39→23:28)
[2017-07-16] MEDS: PROPOFOL 1,000 MG/100 ML BOTTLE IV SCH ×6 (02:43→23:21)
[2017-07-16] MEDS: INSULIN REGULAR 100 UNIT/ML SUBCUT SCH ×4 (05:23→23:24)
[2017-07-16] MEDS: MICAFUNGIN 100 MG in SODIUM CHLORIDE 0.9% 100 ML IV SCH (06:00)
[2017-07-16 06:03] LABS: Calcium 8.3 MG/DL (8.5-10.1); Osmolality,Calculated 276.1 MOS/KG (273-304); Potassium 5.1 MMOL/L (3.5-5.1)
[2017-07-16 06:54] LABS: Basophils # 0.1 10*3/uL (0.0-0.2); Basophils % 0.4 % (0.0-0.8); Eosinophils # 0.3 10*3/uL (0.0-0.87); Eosinophils % 1.8 % (0.00-10.9); Hematocrit 24.2 VOL% (42.0-52.0); Hemoglobin 8.9 GM/DL (14.0-18.0); Immature Granulocytes Absolute 4.53 #; Lymphocytes # 0.5 10*3/uL (1.4-4.0); Lymphocytes % 3.8 % (21.2-54.2); Mean Corpuscular HGB Conc 36.8 GM/DL (32-36); Mean Corpuscular Hemoglobin 29 PG (27-34); Mean Corpuscular Volume 79.9 FL (87-102); Mean Platelet Volume 9.7 FL (9.6-12.0); Monocytes # 1.2 10*3/uL (0.11-0.8); Monocytes % 8.2 % (1.7-12.7); Neutrophils # 7.6 10*3/uL (1.4-7.4); Neutrophils % 53.8 % (38.7-73.9); Platelet Count 180 T/CUMM (130-400); Red Blood Count 3.03 MC/CUMM (3.8-5.5); Red Cell Distribution Width 17.5 % (9.3-17.3); White Blood Count 14.2 T/CUMM (4-12)
[2017-07-16 07:23] LABS: Band Neutrophils 7 % (0-10); Lymphocytes 10 % (20-55); Metamyelocytes 4 %; Microcytosis 2+; Myelocytes 20 %; Platelet Estimate Normal; Promyelocytes 1 %; Segmented Neutrophils 53 % (50-85); Total Cells Counted 100
[2017-07-16] MEDS: PANTOPRAZOLE 40 MG VIAL IV SCH ×2 (08:47→20:27)
[2017-07-16] MEDS: MULTIVITAMIN (BEROCCA) TABLET PO SCH (08:48)
[2017-07-16] MEDS: ZINC OXIDE PASTE 113 GM TUBE TOP SCH ×2 (08:48→20:27)
[2017-07-16] MEDS: ASPIRIN 325 MG TABLET NG SCH (08:48)
[2017-07-16] MEDS: LOSARTAN 25 MG TABLET PO SCH (08:48)
[2017-07-16] MEDS: METOPROLOL TARTRATE 25 MG TABLET PO SCH ×2 (08:48→20:27)
[2017-07-16] MEDS: AMIODARONE 200 MG TABLET PEG SCH (08:48)
[2017-07-16] MEDS ORDERED: SODIUM CHLORIDE 0.9% 250 ML IV PRN (10:00)
[2017-07-16] MEDS ORDERED: VANCOMYCIN INJ 1,500 MG in SODIUM CHLORIDE 0.9% 500 ML IV ONE (11:00)
[2017-07-16] MEDS: MULTIVITAMIN INJ 10 ML in AMINO ACIDS/DEXT/LYTES 5-15% 2,000 ML IV SCH (17:46)
[2017-07-16] MEDS: NOREPINEPHRINE 8 MG in SODIUM CHLORIDE 0.9% 242 ML IV SCH (22:56)
[2017-07-17] MEDS: ALBUTEROL/IPRATROPIUM 3 ML NEB RESP TX SCH ×4 (00:46→19:20)
[2017-07-17] MEDS: PROPOFOL 1,000 MG/100 ML BOTTLE IV SCH ×3 (03:44→16:31)
[2017-07-17 06:25] LABS: Basophils # 0.1 10*3/uL (0.0-0.2); Basophils % 0.5 % (0.0-0.8); Eosinophils # 0.2 10*3/uL (0.0-0.87); Eosinophils % 1.6 % (0.00-10.9); Hematocrit 28.5 VOL% (42.0-52.0); Hemoglobin 10.3 GM/DL (14.0-18.0); Immature Granulocytes % 29.9 %; Immature Granulocytes Absolute 4.52 #; Lymphocytes # 0.5 10*3/uL (1.4-4.0); Mean Corpuscular HGB Conc 36.1 GM/DL (32-36); Mean Corpuscular Hemoglobin 29 PG (27-34); Mean Corpuscular Volume 79.8 FL (87-102); Mean Platelet Volume 9.8 FL (9.6-12.0); Monocytes # 1.2 10*3/uL (0.11-0.8); Monocytes % 7.7 % (1.7-12.7); Neutrophils # 8.7 10*3/uL (1.4-7.4); Neutrophils % 57.3 % (38.7-73.9); Platelet Count 168 T/CUMM (130-400); Red Blood Count 3.57 MC/CUMM (3.8-5.5); Red Cell Distribution Width 17.3 % (9.3-17.3); White Blood Count 15.1 T/CUMM (4-12)
[2017-07-17] MEDS: METOCLOPRAMIDE 5 MG TABLET PO SCH ×3 (06:27→18:23)
[2017-07-17] MEDS: INSULIN REGULAR 100 UNIT/ML SUBCUT SCH ×3 (06:27→18:23)
[2017-07-17] MEDS: MICAFUNGIN 100 MG in SODIUM CHLORIDE 0.9% 100 ML IV SCH (06:29)
[2017-07-17 06:43] LABS: Calcium 8.5 MG/DL (8.5-10.1); Osmolality,Calculated 279.4 MOS/KG (273-304); Potassium 5.6 MMOL/L (3.5-5.1)
[2017-07-17 06:49] LABS: Band Neutrophils 18 % (0-10); Eosinophils 3 % (0-10); Giant Platelets Few; Hypochromasia 1+; Lymphocytes 3 % (20-55); Metamyelocytes 3 %; Myelocytes 3 %; Ovalocytes Slight; Platelet Estimate Normal; Segmented Neutrophils 59 % (50-85); Total Cells Counted 100
[2017-07-17 06:50] LABS: Microcytosis 1+; Prealbumin 32.6 MG/DL (20-40)
[2017-07-17] MEDS ORDERED: ALBUMIN 5% 12.5 GM/250 ML VIAL IV ONE ×2 (08:43→08:58)
[2017-07-17] MEDS ORDERED: ALBUMIN 5% 25 GM in PREMIX 1 EACH IV ONE (08:45)
[2017-07-17] MEDS ORDERED: PHENYLEPHRINE DRIP 40 MG/250 ML PREMIX IV ONE (08:58)
[2017-07-17 09:30] LABS: Hematocrit 21.1 VOL% (42.0-52.0)
[2017-07-17] MEDS: PANTOPRAZOLE 40 MG VIAL IV SCH ×2 (09:50→22:44)
[2017-07-17] MEDS: MORPHINE 2 MG/1 ML SYRINGE IV PRN (09:50)
[2017-07-17] MEDS: METOPROLOL TARTRATE 25 MG TABLET PO SCH ×2 (09:51→22:44)
[2017-07-17] MEDS: AMIODARONE 200 MG TABLET PEG SCH (09:51)
[2017-07-17] MEDS: ZINC OXIDE PASTE 113 GM TUBE TOP SCH ×2 (09:51→22:44)
[2017-07-17] MEDS: ASPIRIN 325 MG TABLET NG SCH (09:51)
[2017-07-17] MEDS: MULTIVITAMIN (BEROCCA) TABLET PO SCH (09:51)
[2017-07-17] MEDS: LOSARTAN 25 MG TABLET PO SCH (09:51)
[2017-07-17] MEDS: PHENYLEPHRINE DRIP 40 MG/250 ML PREMIX IV SCH (10:38)
[2017-07-17 10:51] LABS: Hemoglobin 7.6 GM/DL (14.0-18.0)
[2017-07-17] MEDS ORDERED: SODIUM CHLORIDE 0.9% 1,000 ML IV PRN ×2 (11:00→12:20)
[2017-07-17] MEDS ORDERED: VANCOMYCIN INJ 750 MG in SODIUM CHLORIDE 0.9% 250 ML IV PRN (12:53)
[2017-07-17] MEDS ORDERED: metroNIDAZOLE INJ 500 MG in PREMIX 1 EACH IV SCH (13:00)
[2017-07-17] MEDS: FLUCONAZOLE INJ 100 MG in IV BAG 1 EACH IV SCH (15:21)
[2017-07-17] MEDS: PIPERACILLIN/TAZOBACTAM 2,250 MG in SODIUM CHLORIDE 0.9% 100 ML IV SCH ×2 (15:50→22:45)
[2017-07-17] MEDS ORDERED: DEXTROSE 30% IV SCH (17:00)
[2017-07-17] MEDS ORDERED: MULTIVITAMIN IV SCH (17:00)
[2017-07-17] MEDS ORDERED: AMINO ACIDS IV SCH (17:00)
[2017-07-17] MEDS ORDERED: VANCOMYCIN INJ 1,750 MG in SODIUM CHLORIDE 0.9% 500 ML IV ONE (18:00)
[2017-07-17] MEDS: DEXTROSE IV SCH (18:22)
[2017-07-17] MEDS: AMINO ACIDS IV SCH (18:22)
[2017-07-17] MEDS: MULTIVITAMIN IV SCH (18:22)
[2017-07-17] MEDS: NOREPINEPHRINE 8 MG in SODIUM CHLORIDE 0.9% 242 ML IV SCH (22:45)
[2017-07-18] MEDS: INSULIN REGULAR 100 UNIT/ML SUBCUT SCH ×4 (00:31→18:16)
[2017-07-18] MEDS: METOCLOPRAMIDE 5 MG TABLET PO SCH ×4 (00:53→18:30)
[2017-07-18] MEDS: ALBUTEROL/IPRATROPIUM 3 ML NEB RESP TX SCH ×4 (01:04→20:12)
[2017-07-18] MEDS: PROPOFOL 1,000 MG/100 ML BOTTLE IV SCH ×5 (02:30→22:29)
[2017-07-18 03:15] LABS: ABG Base Excess -2.2 MMOL/L (-2.5-2.5); ABG HCO3 22.6 MMOL/L (20-26); ABG Oxygen Saturation 99.3 % (95-100); ABG PCO2 32.5 MM HG (35-48); ABG PH 7.432 (7.35-7.45); ABG TCO2 20.4 MMOL/L (23-27); Allen Test Positive; Pt O2 Delivery Device Ventilator
[2017-07-18 05:13] LABS: Basophils % 0.2 % (0.0-0.8); Eosinophils # 0.2 10*3/uL (0.0-0.87); Eosinophils % 1.4 % (0.00-10.9); Hematocrit 20.4 VOL% (42.0-52.0); Hemoglobin 7.5 GM/DL (14.0-18.0); Immature Granulocytes % 25.2 %; Immature Granulocytes Absolute 3.88 #; Lymphocytes # 0.4 10*3/uL (1.4-4.0); Lymphocytes % 2.3 % (21.2-54.2); Mean Corpuscular HGB Conc 36.8 GM/DL (32-36); Mean Corpuscular Hemoglobin 30 PG (27-34); Mean Platelet Volume 10.4 FL (9.6-12.0); Monocytes # 1.1 10*3/uL (0.11-0.8); Monocytes % 7.3 % (1.7-12.7); Neutrophils # 9.8 10*3/uL (1.4-7.4); Neutrophils % 63.6 % (38.7-73.9); Platelet Count 132 T/CUMM (130-400); Red Blood Count 2.52 MC/CUMM (3.8-5.5); Red Cell Distribution Width 16.7 % (9.3-17.3); White Blood Count 15.4 T/CUMM (4-12)
[2017-07-18 05:41] LABS: Calcium 7.9 MG/DL (8.5-10.1); Osmolality,Calculated 279.8 MOS/KG (273-304); Potassium 4.6 MMOL/L (3.5-5.1)
[2017-07-18 05:44] LABS: Albumin 1.6 G/DL (3.4-5.0); Band Neutrophils 3 % (0-10); Bilirubin,Direct 4.96 MG/DL (0.0-0.20); Bilirubin,Indirect 1.2 MG/DL (0.0-1.0); Bilirubin,Total 6.2 MG/DL (0.2-1.0); Lymphocytes 17 % (20-55); Metamyelocytes 7 %; Myelocytes 4 %; Platelet Estimate Normal; Segmented Neutrophils 62 % (50-85); Total Cells Counted 100; Total Protein 4.2 G/DL (6.4-8.3)
[2017-07-18 05:45] LABS: Atypical Lymphocytes Few; Microcytosis 1+
[2017-07-18] MEDS: PIPERACILLIN/TAZOBACTAM 2,250 MG in SODIUM CHLORIDE 0.9% 100 ML IV SCH ×3 (06:15→23:15)
[2017-07-18] MEDS: PANTOPRAZOLE 40 MG VIAL IV SCH ×2 (09:24→22:17)
[2017-07-18] MEDS: METOPROLOL TARTRATE 25 MG TABLET PO SCH ×2 (09:24→22:17)
[2017-07-18] MEDS: ZINC OXIDE PASTE 113 GM TUBE TOP SCH ×2 (09:24→22:17)
[2017-07-18] MEDS: AMIODARONE 200 MG TABLET PEG SCH (09:24)
[2017-07-18] MEDS: ASPIRIN 325 MG TABLET NG SCH (09:24)
[2017-07-18] MEDS: LOSARTAN 25 MG TABLET PO SCH (09:24)
[2017-07-18] MEDS ORDERED: LIDOCAINE 2% TOP JELLY 20 ML VIAL INTRAURETH ONE ×2 (09:59→10:01)
[2017-07-18] MEDS ORDERED: SODIUM CHLORIDE 0.9% 1,000 ML IV PRN ×2 (10:29→12:24)
[2017-07-18] MEDS: PHENYLEPHRINE DRIP 40 MG/250 ML PREMIX IV SCH (11:11)
[2017-07-18 11:46] LABS: Bacteria,Urine Moderate /HPF (Few); Mucus,Urine Occasional /LPF (Occasional); RBC,Urine 202 /HPF (0-4); Squamous Epithelial Cell,Urine Occasional /HPF (0-10); WBC,Urine 47 /HPF (0-6)
[2017-07-18 11:47] LABS: Apearance,Urine Cloudy (Clear); Glucose,Urine (UA) 50 mg/dL (Negative); Ketones,Urine Negative (Negative); Nitrite,Urine Negative (Negative); Protein,Urine >500 MG/DL; Urine Color Brown (Yellow); Urine Specific Gravity 1.005 (1.001-1.035)
[2017-07-18 11:48] LABS: Bilirubin,Urine Negative (Negative); Blood, Urine Large mg/dL (Negative); Urine Urobilinogen 0.2 EU/DL (0.2-1.0)
[2017-07-18] MEDS: BACITRACIN OINT 0.9 GM PACK TOP SCH ×2 (13:31→22:17)
[2017-07-18] MEDS: FLUCONAZOLE INJ 100 MG in IV BAG 1 EACH IV SCH (15:02)
[2017-07-18] MEDS: AMINO ACIDS IV SCH (16:39)
[2017-07-18] MEDS: DEXTROSE IV SCH (16:39)
[2017-07-18] MEDS: MULTIVITAMIN IV SCH (16:39)
[2017-07-18] MEDS ORDERED: MULTIVITAMIN INJ 10 ML in AMINO ACIDS/DEXT/LYTES 4.25-5% 2,000 ML IV SCH (17:00)
[2017-07-18] MEDS ORDERED: VANCOMYCIN INJ 750 MG in SODIUM CHLORIDE 0.9% 250 ML IV ONE (21:00)
[2017-07-18] MEDS ORDERED: ROSUVASTATIN 10 MG TABLET PO SCH (21:00)
[2017-07-18] MEDS ORDERED: BACITRACIN OINT 0.9 GM PACK TOP SCH (21:00)
[2017-07-18] MEDS: MORPHINE 2 MG/1 ML SYRINGE IV PRN (21:42)
[2017-07-18] MEDS: NOREPINEPHRINE 8 MG in SODIUM CHLORIDE 0.9% 242 ML IV SCH (22:17)
[2017-07-19] MEDS: INSULIN REGULAR 100 UNIT/ML SUBCUT SCH ×4 (00:37→18:04)
[2017-07-19] MEDS: ALBUTEROL/IPRATROPIUM 3 ML NEB RESP TX SCH ×4 (01:14→20:18)
[2017-07-19] MEDS: METOCLOPRAMIDE 5 MG TABLET PO SCH ×4 (01:40→18:58)
[2017-07-19] MEDS: PROPOFOL 1,000 MG/100 ML BOTTLE IV SCH ×4 (03:30→23:07)
[2017-07-19 03:52] LABS: ABG Base Excess -5.3 MMOL/L (-2.5-2.5); ABG Oxygen Saturation 99.4 % (95-100); ABG PCO2 32.2 MM HG (35-48); ABG PH 7.379 (7.35-7.45); ABG TCO2 17.4 MMOL/L (23-27)
[2017-07-19 04:59] LABS: Basophils % 0.3 % (0.0-0.8); Eosinophils # 0.3 10*3/uL (0.0-0.87); Eosinophils % 2.2 % (0.00-10.9); Hemoglobin 9.3 GM/DL (14.0-18.0); Immature Granulocytes % 21.5 %; Immature Granulocytes Absolute 3.06 #; Lymphocytes # 0.3 10*3/uL (1.4-4.0); Lymphocytes % 2.2 % (21.2-54.2); Mean Corpuscular HGB Conc 35.8 GM/DL (32-36); Mean Corpuscular Hemoglobin 29 PG (27-34); Mean Corpuscular Volume 81.3 FL (87-102); Mean Platelet Volume 10.4 FL (9.6-12.0); Monocytes # 1.2 10*3/uL (0.11-0.8); Monocytes % 8.3 % (1.7-12.7); Neutrophils # 9.3 10*3/uL (1.4-7.4); Neutrophils % 65.5 % (38.7-73.9); Platelet Count 133 T/CUMM (130-400); Red Cell Distribution Width 16.9 % (9.3-17.3); White Blood Count 14.2 T/CUMM (4-12)
[2017-07-19 05:20] LABS: Band Neutrophils 4 % (0-10); Eosinophils 5 % (0-10); Lymphocytes 2 % (20-55); Myelocytes 1 %; Platelet Estimate Normal; Segmented Neutrophils 77 % (50-85); Total Cells Counted 100
[2017-07-19 05:21] LABS: Burr Cells Slight; Calcium 8.3 MG/DL (8.5-10.1); Giant Platelets Few; Hypochromasia 1+; Microcytosis 1+; Osmolality,Calculated 279.2 MOS/KG (273-304); Ovalocytes Slight; Potassium 4.8 MMOL/L (3.5-5.1)
[2017-07-19 05:29] LABS: Albumin 1.8 G/DL (3.4-5.0); Bilirubin,Direct 4.92 MG/DL (0.0-0.20); Bilirubin,Indirect 0.6 MG/DL (0.0-1.0); Bilirubin,Total 5.5 MG/DL (0.2-1.0); Total Protein 4.9 G/DL (6.4-8.3)
[2017-07-19] MEDS: PIPERACILLIN/TAZOBACTAM 2,250 MG in SODIUM CHLORIDE 0.9% 100 ML IV SCH ×2 (07:11→21:47)
[2017-07-19] MEDS: PANTOPRAZOLE 40 MG VIAL IV SCH ×2 (08:59→21:44)
[2017-07-19] MEDS: ASPIRIN 325 MG TABLET NG SCH (08:59)
[2017-07-19] MEDS: METOPROLOL TARTRATE 25 MG TABLET PO SCH ×2 (08:59→21:44)
[2017-07-19] MEDS: AMIODARONE 200 MG TABLET PEG SCH (08:59)
[2017-07-19] MEDS: LOSARTAN 25 MG TABLET PO SCH (08:59)
[2017-07-19] MEDS: ZINC OXIDE PASTE 113 GM TUBE TOP SCH ×2 (09:00→21:44)
[2017-07-19] MEDS ORDERED: VANCOMYCIN INJ 500 MG in SODIUM CHLORIDE 0.9% 100 ML IV PRN (09:30)
[2017-07-19] MEDS: PHENYLEPHRINE DRIP 40 MG/250 ML PREMIX IV SCH (11:05)
[2017-07-19] MEDS: BACITRACIN OINT 0.9 GM PACK TOP SCH ×2 (12:49→21:47)
[2017-07-19] MEDS: FLUCONAZOLE INJ 100 MG in IV BAG 1 EACH IV SCH (21:23)
[2017-07-20] MEDS: INSULIN REGULAR 100 UNIT/ML SUBCUT SCH ×4 (00:55→17:53)
[2017-07-20] MEDS: METOCLOPRAMIDE 5 MG TABLET PO SCH ×4 (00:57→17:16)
[2017-07-20] MEDS: ALBUTEROL/IPRATROPIUM 3 ML NEB RESP TX SCH ×4 (01:19→19:30)
[2017-07-20] MEDS: PROPOFOL 1,000 MG/100 ML BOTTLE IV SCH ×6 (03:15→22:02)
[2017-07-20] MEDS: PIPERACILLIN/TAZOBACTAM 2,250 MG in SODIUM CHLORIDE 0.9% 100 ML IV SCH ×3 (05:35→22:53)
[2017-07-20 06:50] LABS: Prealbumin 30.5 MG/DL (20-40)
[2017-07-20 06:52] LABS: Calcium 8.3 MG/DL (8.5-10.1); Osmolality,Calculated 276.9 MOS/KG (273-304); Potassium 4.8 MMOL/L (3.5-5.1)
[2017-07-20 07:16] LABS: Basophils # 0.1 10*3/uL (0.0-0.2); Basophils % 0.5 % (0.0-0.8); Eosinophils # 0.2 10*3/uL (0.0-0.87); Eosinophils % 1.9 % (0.00-10.9); Hemoglobin 8.6 GM/DL (14.0-18.0); Immature Granulocytes % 16.5 %; Immature Granulocytes Absolute 2.05 #; Lymphocytes # 0.3 10*3/uL (1.4-4.0); Lymphocytes % 2.7 % (21.2-54.2); Mean Corpuscular HGB Conc 34.4 GM/DL (32-36); Mean Corpuscular Hemoglobin 29 PG (27-34); Mean Corpuscular Volume 83.6 FL (87-102); Mean Platelet Volume 10.1 FL (9.6-12.0); Monocytes # 1.1 10*3/uL (0.11-0.8); Monocytes % 9.1 % (1.7-12.7); Neutrophils # 8.6 10*3/uL (1.4-7.4); Neutrophils % 69.3 % (38.7-73.9); Platelet Count 148 T/CUMM (130-400); Red Blood Count 2.99 MC/CUMM (3.8-5.5); Red Cell Distribution Width 17.2 % (9.3-17.3); White Blood Count 12.4 T/CUMM (4-12)
[2017-07-20 08:11] LABS: Band Neutrophils 3 % (0-10); Eosinophils 4 % (0-10); Lymphocytes 6 % (20-55); Metamyelocytes 4 %; Myelocytes 2 %; Segmented Neutrophils 72 % (50-85); Total Cells Counted 100
[2017-07-20 08:12] LABS: Hypochromasia 1+; Microcytosis 1+
[2017-07-20 08:13] LABS: Platelet Estimate Adequate
[2017-07-20] MEDS: PANTOPRAZOLE 40 MG VIAL IV SCH ×2 (08:56→20:28)
[2017-07-20] MEDS: LOSARTAN 25 MG TABLET PO SCH (08:56)
[2017-07-20] MEDS: METOPROLOL TARTRATE 25 MG TABLET PO SCH (08:56)
[2017-07-20] MEDS: ASPIRIN CHEW 81 MG TABLET PO SCH (08:56)
[2017-07-20] MEDS: BACITRACIN OINT 0.9 GM PACK TOP SCH ×2 (08:56→20:28)
[2017-07-20] MEDS: AMIODARONE 200 MG TABLET PEG SCH (08:56)
[2017-07-20] MEDS: ZINC OXIDE PASTE 113 GM TUBE TOP SCH ×2 (08:57→20:28)
[2017-07-20] MEDS: MORPHINE 2 MG/1 ML SYRINGE IV PRN (12:48)
[2017-07-20] MEDS ORDERED: VANCOMYCIN INJ 500 MG in SODIUM CHLORIDE 0.9% 100 ML IV ONE (20:00)
[2017-07-20] MEDS: FLUCONAZOLE INJ 100 MG in IV BAG 1 EACH IV SCH (20:25)
[2017-07-20] MEDS: METOPROLOL TARTRATE 50 MG TABLET PO SCH (20:28)
[2017-07-21] MEDS: ALBUTEROL/IPRATROPIUM 3 ML NEB RESP TX SCH ×4 (00:55→19:45)
[2017-07-21] MEDS: INSULIN REGULAR 100 UNIT/ML SUBCUT SCH ×4 (01:11→19:26)
[2017-07-21] MEDS: METOCLOPRAMIDE 5 MG TABLET PO SCH ×4 (01:47→19:26)
[2017-07-21] MEDS: PROPOFOL 1,000 MG/100 ML BOTTLE IV SCH ×5 (02:05→23:00)
[2017-07-21 04:48] LABS: Basophils % 0.4 % (0.0-0.8); Eosinophils # 0.2 10*3/uL (0.0-0.87); Eosinophils % 1.9 % (0.00-10.9); Hematocrit 25.4 VOL% (42.0-52.0); Immature Granulocytes % 13.9 %; Immature Granulocytes Absolute 1.55 #; Lymphocytes # 0.3 10*3/uL (1.4-4.0); Lymphocytes % 2.6 % (21.2-54.2); Mean Corpuscular HGB Conc 35.4 GM/DL (32-36); Mean Corpuscular Hemoglobin 29 PG (27-34); Mean Corpuscular Volume 81.4 FL (87-102); Mean Platelet Volume 10.1 FL (9.6-12.0); Monocytes # 1.1 10*3/uL (0.11-0.8); Monocytes % 9.9 % (1.7-12.7); Neutrophils # 7.9 10*3/uL (1.4-7.4); Neutrophils % 71.3 % (38.7-73.9); Platelet Count 184 T/CUMM (130-400); Red Blood Count 3.12 MC/CUMM (3.8-5.5); Red Cell Distribution Width 17.4 % (9.3-17.3); White Blood Count 11.1 T/CUMM (4-12)
[2017-07-21 05:10] LABS: Hypochromasia 1+; Lymphocytes 4 % (20-55); Metamyelocytes 3 %; Myelocytes 2 %; Promyelocytes 1 %; Segmented Neutrophils 81 % (50-85); Total Cells Counted 100
[2017-07-21 05:11] LABS: Microcytosis 1+; Tear Drop Cells Slight
[2017-07-21 05:14] LABS: Calcium 7.9 MG/DL (8.5-10.1); Osmolality,Calculated 278.5 MOS/KG (273-304); Potassium 4.3 MMOL/L (3.5-5.1)
[2017-07-21] MEDS: PIPERACILLIN/TAZOBACTAM 2,250 MG in SODIUM CHLORIDE 0.9% 100 ML IV SCH ×2 (06:28→13:59)
[2017-07-21] MEDS: MORPHINE 2 MG/1 ML SYRINGE IV PRN ×2 (07:36→21:45)
[2017-07-21] MEDS: PANTOPRAZOLE 40 MG VIAL IV SCH ×2 (09:43→20:42)
[2017-07-21] MEDS: METOPROLOL TARTRATE 50 MG TABLET PO SCH ×2 (09:45→20:41)
[2017-07-21] MEDS: AMIODARONE 200 MG TABLET PEG SCH (09:45)
[2017-07-21] MEDS: ASPIRIN CHEW 81 MG TABLET PO SCH (09:45)
[2017-07-21] MEDS: LOSARTAN 25 MG TABLET PO SCH (09:45)
[2017-07-21] MEDS: BACITRACIN OINT 0.9 GM PACK TOP SCH ×2 (09:45→20:43)
[2017-07-21] MEDS: ZINC OXIDE PASTE 113 GM TUBE TOP SCH ×2 (13:21→20:43)
[2017-07-21] MEDS: NYSTATIN 500,000 UNIT/5 ML UDCUP SWISH/SWAL SCH ×2 (13:21→19:26)
[2017-07-21 18:44] LABS: Hepatitis A Ab IgM Quant 0.13 Index; Hepatitis A Ab IgM Result Negative (Negative); Hepatitis B Core IgM Quant 0.17 Index; Hepatitis B Core IgM Result Negative (Negative); Hepatitis B Surface Ag Quant < 0.10 Index; Hepatitis B Surface Ag Result Negative (Negative); Hepatitis C Virus Ab Quant 0.08 Index; Hepatitis C Virus Ab Result Negative (Negative)
[2017-07-21] MEDS ORDERED: VANCOMYCIN INJ 500 MG in SODIUM CHLORIDE 0.9% 100 ML IV ONE (20:00)
[2017-07-21] MEDS: FLUCONAZOLE INJ 100 MG in IV BAG 1 EACH IV SCH (20:42)
[2017-07-22] MEDS: ALBUTEROL/IPRATROPIUM 3 ML NEB RESP TX SCH ×4 (00:27→19:18)
[2017-07-22] MEDS: INSULIN REGULAR 100 UNIT/ML SUBCUT SCH ×5 (01:26→23:44)
[2017-07-22] MEDS: PIPERACILLIN/TAZOBACTAM 2,250 MG in SODIUM CHLORIDE 0.9% 100 ML IV SCH ×4 (01:29→21:56)
[2017-07-22] MEDS: METOCLOPRAMIDE 5 MG TABLET PO SCH ×4 (01:29→18:28)
[2017-07-22] MEDS: NYSTATIN 500,000 UNIT/5 ML UDCUP SWISH/SWAL SCH ×4 (01:29→18:28)
[2017-07-22 03:55] LABS: ABG Base Excess -0.1 MMOL/L (-2.5-2.5); ABG Oxygen Saturation 98.4 % (95-100); ABG PCO2 36.4 MM HG (35-48); ABG PH 7.437 (7.35-7.45); ABG PO2 138.5 MM HG (80-95); ABG TCO2 25.1 MMOL/L (23-27); Allen Test Positive; Pt O2 Delivery Device Ventilator
[2017-07-22 04:57] LABS: Calcium 8.1 MG/DL (8.5-10.1); Osmolality,Calculated 280.2 MOS/KG (273-304)
[2017-07-22] MEDS: AMIODARONE 200 MG TABLET PEG SCH (08:06)
[2017-07-22] MEDS: BACITRACIN OINT 0.9 GM PACK TOP SCH ×2 (08:06→21:56)
[2017-07-22] MEDS: ASPIRIN CHEW 81 MG TABLET PO SCH (08:06)
[2017-07-22] MEDS: LOSARTAN 25 MG TABLET PO SCH (08:06)
[2017-07-22] MEDS: METOPROLOL TARTRATE 50 MG TABLET PO SCH ×2 (08:07→21:56)
[2017-07-22] MEDS: PANTOPRAZOLE 40 MG VIAL IV SCH ×2 (08:08→21:56)
[2017-07-22] MEDS: PROPOFOL 1,000 MG/100 ML BOTTLE IV SCH ×2 (08:11→17:25)
[2017-07-22] MEDS: ZINC OXIDE PASTE 113 GM TUBE TOP SCH ×2 (08:14→21:57)
[2017-07-22 09:36] LABS: Basophils % 0.3 % (0.0-0.8); Eosinophils # 0.2 10*3/uL (0.0-0.87); Eosinophils % 1.9 % (0.00-10.9); Hematocrit 23.1 VOL% (42.0-52.0); Immature Granulocytes % 12.1 %; Immature Granulocytes Absolute 1.49 #; Lymphocytes # 0.5 10*3/uL (1.4-4.0); Lymphocytes % 3.6 % (21.2-54.2); Mean Corpuscular HGB Conc 34.6 GM/DL (32-36); Mean Corpuscular Hemoglobin 29 PG (27-34); Mean Corpuscular Volume 83.7 FL (87-102); Mean Platelet Volume 9.7 FL (9.6-12.0); Monocytes # 1.2 10*3/uL (0.11-0.8); Neutrophils # 8.9 10*3/uL (1.4-7.4); Neutrophils % 72.1 % (38.7-73.9); Platelet Count 246 T/CUMM (130-400); Red Blood Count 2.76 MC/CUMM (3.8-5.5); Red Cell Distribution Width 17.6 % (9.3-17.3); White Blood Count 12.4 T/CUMM (4-12)
[2017-07-22 11:39] LABS: Macrocytosis Slight; Platelet Estimate Adequate; Polychromasia Slight
[2017-07-22 11:54] LABS: Osmolality,Calculated 281.2 MOS/KG (273-304); Potassium 4.2 MMOL/L (3.5-5.1)
[2017-07-22] MEDS: MORPHINE 2 MG/1 ML SYRINGE IV PRN (17:31)
[2017-07-22] MEDS: FLUCONAZOLE INJ 100 MG in IV BAG 1 EACH IV SCH (21:57)
[2017-07-23] MEDS: MORPHINE 2 MG/1 ML SYRINGE IV PRN ×3 (00:10→22:15)
[2017-07-23] MEDS: NYSTATIN 500,000 UNIT/5 ML UDCUP SWISH/SWAL SCH ×4 (00:56→18:21)
[2017-07-23] MEDS: METOCLOPRAMIDE 5 MG TABLET PO SCH ×4 (00:57→18:21)
[2017-07-23] MEDS: ALBUTEROL/IPRATROPIUM 3 ML NEB RESP TX SCH ×4 (01:16→19:52)
[2017-07-23] MEDS: PROPOFOL 1,000 MG/100 ML BOTTLE IV SCH ×3 (03:10→17:38)
[2017-07-23 03:40] LABS: Allen Test Positive; Pt O2 Delivery Device Ventilator
[2017-07-23 03:41] LABS: ABG Base Excess -2.5 MMOL/L (-2.5-2.5); ABG HCO3 22.3 MMOL/L (20-26); ABG Oxygen Saturation 98.1 % (95-100); ABG PCO2 38.2 MM HG (35-48); ABG PH 7.384 (7.35-7.45); ABG TCO2 23.5 MMOL/L (23-27)
[2017-07-23 04:28] LABS: Basophils # 0.1 10*3/uL (0.0-0.2); Basophils % 0.7 % (0.0-0.8); Eosinophils # 0.3 10*3/uL (0.0-0.87); Eosinophils % 2.3 % (0.00-10.9); Hematocrit 21.5 VOL% (42.0-52.0); Immature Granulocytes % 10.2 %; Immature Granulocytes Absolute 1.09 #; Lymphocytes # 0.4 10*3/uL (1.4-4.0); Mean Corpuscular HGB Conc 32.6 GM/DL (32-36); Mean Corpuscular Hemoglobin 28 PG (27-34); Mean Platelet Volume 9.6 FL (9.6-12.0); Monocytes # 1.3 10*3/uL (0.11-0.8); Monocytes % 11.7 % (1.7-12.7); Neutrophils # 7.6 10*3/uL (1.4-7.4); Neutrophils % 71.1 % (38.7-73.9); Platelet Count 281 T/CUMM (130-400); Red Cell Distribution Width 17.5 % (9.3-17.3); White Blood Count 10.7 T/CUMM (4-12)
[2017-07-23 04:57] LABS: Calcium 8.8 MG/DL (8.5-10.1); Osmolality,Calculated 286.2 MOS/KG (273-304); Potassium 4.3 MMOL/L (3.5-5.1)
[2017-07-23] MEDS: INSULIN REGULAR 100 UNIT/ML SUBCUT SCH ×3 (05:11→18:22)
[2017-07-23 05:25] LABS: Band Neutrophils 9 % (0-10); Eosinophils 1 % (0-10); Lymphocytes 6 % (20-55); Metamyelocytes 2 %; Myelocytes 1 %; Segmented Neutrophils 76 % (50-85); Total Cells Counted 100
[2017-07-23 05:26] LABS: Anisocytosis 1+; Poikilocytosis 1+
[2017-07-23] MEDS: PIPERACILLIN/TAZOBACTAM 2,250 MG in SODIUM CHLORIDE 0.9% 100 ML IV SCH ×3 (05:50→20:27)
[2017-07-23] MEDS: ASPIRIN CHEW 81 MG TABLET PO SCH (08:30)
[2017-07-23] MEDS: METOPROLOL TARTRATE 50 MG TABLET PO SCH ×2 (08:30→20:26)
[2017-07-23] MEDS: LOSARTAN 25 MG TABLET PO SCH (08:31)
[2017-07-23] MEDS: BACITRACIN OINT 0.9 GM PACK TOP SCH ×2 (08:32→20:27)
[2017-07-23] MEDS: PANTOPRAZOLE 40 MG VIAL IV SCH ×2 (08:32→20:26)
[2017-07-23] MEDS: AMIODARONE 200 MG TABLET PEG SCH (08:32)
[2017-07-23] MEDS: ZINC OXIDE PASTE 113 GM TUBE TOP SCH ×2 (08:34→20:27)
[2017-07-23] MEDS ORDERED: EPOETIN ALFA 10,000 UNIT/1 ML VIAL IV ONE (08:43)
[2017-07-23] MEDS: FLUCONAZOLE INJ 100 MG in IV BAG 1 EACH IV SCH (19:35)
[2017-07-24] MEDS: NYSTATIN 500,000 UNIT/5 ML UDCUP SWISH/SWAL SCH ×5 (00:17→23:29)
[2017-07-24] MEDS: METOCLOPRAMIDE 5 MG TABLET PO SCH ×5 (00:23→23:29)
[2017-07-24] MEDS: ALBUTEROL/IPRATROPIUM 3 ML NEB RESP TX SCH ×4 (01:37→19:12)
[2017-07-24 03:25] LABS: Basophils # 0.1 10*3/uL (0.0-0.2); Basophils % 0.8 % (0.0-0.8); Eosinophils # 0.3 10*3/uL (0.0-0.87); Eosinophils % 2.5 % (0.00-10.9); Hemoglobin 7.4 GM/DL (14.0-18.0); Immature Granulocytes % 10.2 %; Immature Granulocytes Absolute 1.29 #; Lymphocytes # 0.7 10*3/uL (1.4-4.0); Lymphocytes % 5.2 % (21.2-54.2); Mean Corpuscular HGB Conc 32.2 GM/DL (32-36); Mean Corpuscular Hemoglobin 29 PG (27-34); Mean Corpuscular Volume 88.5 FL (87-102); Mean Platelet Volume 9.6 FL (9.6-12.0); Monocytes # 1.4 10*3/uL (0.11-0.8); Monocytes % 10.7 % (1.7-12.7); Neutrophils # 8.9 10*3/uL (1.4-7.4); Neutrophils % 70.6 % (38.7-73.9); Platelet Count 321 T/CUMM (130-400); Red Cell Distribution Width 17.4 % (9.3-17.3); White Blood Count 12.6 T/CUMM (4-12)
[2017-07-24 03:41] LABS: ABG Base Excess -5.3 MMOL/L (-2.5-2.5); ABG HCO3 19.8 MMOL/L (20-26); ABG Oxygen Saturation 77.9 % (95-100); ABG PCO2 39.8 MM HG (35-48); ABG PH 7.318 (7.35-7.45); ABG PO2 44.5 MM HG (80-95); ABG TCO2 19.3 MMOL/L (23-27); Allen Test Positive; Pt O2 Delivery Device Ventilator
[2017-07-24 03:56] LABS: Calcium 8.6 MG/DL (8.5-10.1); Osmolality,Calculated 293.4 MOS/KG (273-304); Potassium 4.6 MMOL/L (3.5-5.1)
[2017-07-24 04:12] LABS: Prealbumin 28.6 MG/DL (20-40)
[2017-07-24 04:49] LABS: Band Neutrophils 5 % (0-10); Eosinophils 1 % (0-10); Lymphocytes 6 % (20-55); Myelocytes 1 %; Segmented Neutrophils 70 % (50-85); Total Cells Counted 100
[2017-07-24 04:50] LABS: Giant Platelets Few; Hypochromasia 1+; Microcytosis Slight; Ovalocytes Slight; Platelet Estimate Adequate
[2017-07-24 05:09] LABS: ABG Base Excess -5.4 MMOL/L (-2.5-2.5); ABG HCO3 19.9 MMOL/L (20-26); ABG Oxygen Saturation 98.9 % (95-100); ABG PCO2 36.9 MM HG (35-48); ABG PH 7.339 (7.35-7.45); ABG TCO2 18.7 MMOL/L (23-27)
[2017-07-24] MEDS: PIPERACILLIN/TAZOBACTAM 2,250 MG in SODIUM CHLORIDE 0.9% 100 ML IV SCH ×3 (05:28→21:48)
[2017-07-24] MEDS: MORPHINE 2 MG/1 ML SYRINGE IV PRN (05:28)
[2017-07-24] MEDS: LOSARTAN 25 MG TABLET PO SCH (08:46)
[2017-07-24] MEDS: METOPROLOL TARTRATE 50 MG TABLET PO SCH ×2 (08:46→21:48)
[2017-07-24] MEDS: AMIODARONE 200 MG TABLET PEG SCH (08:46)
[2017-07-24] MEDS: BACITRACIN OINT 0.9 GM PACK TOP SCH ×2 (08:46→21:13)
[2017-07-24] MEDS: ASPIRIN CHEW 81 MG TABLET PO SCH (08:46)
[2017-07-24] MEDS: ZINC OXIDE PASTE 113 GM TUBE TOP SCH ×2 (08:47→21:13)
[2017-07-24] MEDS: PANTOPRAZOLE 40 MG VIAL IV SCH ×2 (08:47→21:48)
[2017-07-24] MEDS ORDERED: VANCOMYCIN INJ 250 MG in SODIUM CHLORIDE 0.9% 100 ML IV PRN (14:00)
[2017-07-24] MEDS ORDERED: VANCOMYCIN INJ 250 MG in SODIUM CHLORIDE 0.9% 100 ML IV ONE (14:30)
[2017-07-24] MEDS: PROPOFOL 1,000 MG/100 ML BOTTLE IV SCH (16:15)
[2017-07-24] MEDS: FLUCONAZOLE INJ 100 MG in IV BAG 1 EACH IV SCH (20:30)
[2017-07-25] MEDS: ALBUTEROL/IPRATROPIUM 3 ML NEB RESP TX SCH ×2 (00:43→07:01)
[2017-07-25 03:44] LABS: ABG HCO3 21.9 MMOL/L (20-26); ABG Oxygen Saturation 99.1 % (95-100); ABG PCO2 38.9 MM HG (35-48); ABG PH 7.362 (7.35-7.45); ABG TCO2 20.5 MMOL/L (23-27)
[2017-07-25 05:01] LABS: Basophils # 0.2 10*3/uL (0.0-0.2); Basophils % 1.4 % (0.0-0.8); Eosinophils # 0.4 10*3/uL (0.0-0.87); Eosinophils % 3.3 % (0.00-10.9); Hematocrit 25.9 VOL% (42.0-52.0); Hemoglobin 8.5 GM/DL (14.0-18.0); Immature Granulocytes % 11.4 %; Immature Granulocytes Absolute 1.33 #; Lymphocytes # 0.5 10*3/uL (1.4-4.0); Lymphocytes % 4.4 % (21.2-54.2); Mean Corpuscular HGB Conc 32.8 GM/DL (32-36); Mean Corpuscular Hemoglobin 29 PG (27-34); Mean Corpuscular Volume 87.8 FL (87-102); Mean Platelet Volume 9.8 FL (9.6-12.0); Monocytes # 1.5 10*3/uL (0.11-0.8); Monocytes % 13.1 % (1.7-12.7); Neutrophils # 7.7 10*3/uL (1.4-7.4); Neutrophils % 66.4 % (38.7-73.9); Platelet Count 321 T/CUMM (130-400); Red Blood Count 2.95 MC/CUMM (3.8-5.5); Red Cell Distribution Width 16.9 % (9.3-17.3); White Blood Count 11.7 T/CUMM (4-12)
[2017-07-25 05:24] LABS: Band Neutrophils 1 % (0-10); Eosinophils 4 % (0-10); Hypochromasia 1+; Lymphocytes 7 % (20-55); Metamyelocytes 1 %; Microcytosis 1+; Myelocytes 1 %; Segmented Neutrophils 77 % (50-85); Total Cells Counted 100
[2017-07-25 05:25] LABS: Ovalocytes Slight; Tear Drop Cells Slight
[2017-07-25 05:26] LABS: Platelet Estimate Normal
[2017-07-25] MEDS: PIPERACILLIN/TAZOBACTAM 2,250 MG in SODIUM CHLORIDE 0.9% 100 ML IV SCH (05:29)
[2017-07-25] MEDS: NYSTATIN 500,000 UNIT/5 ML UDCUP SWISH/SWAL SCH ×2 (05:30→12:57)
[2017-07-25] MEDS: METOCLOPRAMIDE 5 MG TABLET PO SCH ×2 (05:30→12:57)
[2017-07-25 05:37] LABS: Calcium 8.4 MG/DL (8.5-10.1); Osmolality,Calculated 292.1 MOS/KG (273-304); Potassium 4.3 MMOL/L (3.5-5.1)
[2017-07-25] MEDS: BACITRACIN OINT 0.9 GM PACK TOP SCH (08:37)
[2017-07-25] MEDS: ASPIRIN CHEW 81 MG TABLET PO SCH (08:38)
[2017-07-25] MEDS: LOSARTAN 25 MG TABLET PO SCH (08:38)
[2017-07-25] MEDS: METOPROLOL TARTRATE 50 MG TABLET PO SCH (08:38)
[2017-07-25] MEDS: AMIODARONE 200 MG TABLET PEG SCH (08:38)
[2017-07-25] MEDS: PANTOPRAZOLE 40 MG VIAL IV SCH (08:38)
[2017-07-25] MEDS: ZINC OXIDE PASTE 113 GM TUBE TOP SCH (08:39)
[2017-07-25 13:13] VITALS: BP 104/61
== END 2017-07-25 13:13 | DRG 3 ==
LOC: N.ED 10:56 → N.ICU 12:04 → N.CL 12:13 → SUATTDRO 12:20 → N.ICU 14:53
PROVIDERS: ADMIT Internal Medicine Cardiovascular Disease; ATTEND Internal Medicine Cardiovascular Disease
PROC: CLCCHCL (ICD-10-PCS; 2017-06-22 13:15)

== ENCOUNTER 2018-02-08 08:22 | Inpatient (IN) ==
[2018-02-08] MEDS ORDERED: ONDANSETRON 4 MG/2 ML VIAL IV STA (08:54)
[2018-02-08 09:10] LABS: Basophils # 0.1 10*3/uL (0.0-0.2); Basophils % 0.9 % (0.0-0.8); Eosinophils # 0.1 10*3/uL (0.0-0.87); Eosinophils % 1.3 % (0.00-10.9); Hematocrit 39.8 VOL% (42.0-52.0); Hemoglobin 12.5 GM/DL (14.0-18.0); Immature Granulocytes % 5.5 %; Immature Granulocytes Absolute 0.35 #; Lymphocytes # 0.8 10*3/uL (1.4-4.0); Lymphocytes % 12.2 % (21.2-54.2); Mean Corpuscular HGB Conc 31.4 GM/DL (32-36); Mean Corpuscular Hemoglobin 26 PG (27-34); Mean Corpuscular Volume 83.8 FL (87-102); Mean Platelet Volume 10.7 FL (9.6-12.0); Monocytes # 0.5 10*3/uL (0.11-0.8); Monocytes % 8.5 % (1.7-12.7); Neutrophils # 4.5 10*3/uL (1.4-7.4); Neutrophils % 71.6 % (38.7-73.9); Platelet Count 105 T/CUMM (130-400); Red Blood Count 4.75 MC/CUMM (3.8-5.5); Red Cell Distribution Width 19.5 % (9.3-17.3); White Blood Count 6.3 T/CUMM (4-12)
[2018-02-08 09:30] LABS: Band Neutrophils 1 % (0-10); Eosinophils 3 % (0-10); Hypochromasia 1+; Lymphocytes 11 % (20-55); Platelet Estimate Decreased; Segmented Neutrophils 73 % (50-85); Total Cells Counted 100
[2018-02-08 09:31] LABS: Microcytosis Slight
[2018-02-08 10:07] LABS: Bilirubin,Total 0.4 MG/DL (0.2-1.0); Calcium 9.5 MG/DL (8.5-10.1); Potassium 5.3 MMOL/L (3.5-5.1)
[2018-02-08] MEDS ORDERED: BISACODYL 10 MG SUPP RECTAL ONE (16:07)
[2018-02-08 16:19] VITALS: BP 122/68
== END 2018-02-08 18:00 | disposition home or self-care (01) | DRG 444 ==
LOC: N.ED 08:22 → N.EDINP 11:30 → N.2W 11:59
PROVIDERS: ADMIT Internal Medicine; ATTEND Internal Medicine

== ENCOUNTER 2018-11-16 09:04 | Inpatient (IN) ==
[~2018-11-16 09:04] MED LIST: SEVELAMER CARBONATE 800 MG TABLET PO SCH
[2018-11-16 10:13] LABS: Basophils # 0.1 10*3/uL (0.0-0.2); Basophils % 0.7 % (0.0-0.8); Eosinophils % 0.3 % (0.00-10.9); Hematocrit 42.9 VOL% (42.0-52.0); Hemoglobin 13.1 GM/DL (14.0-18.0); Immature Granulocytes % 7.1 %; Immature Granulocytes Absolute 0.73 #; Lymphocytes # 0.7 10*3/uL (1.4-4.0); Lymphocytes % 6.6 % (21.2-54.2); Mean Corpuscular HGB Conc 30.5 GM/DL (32-36); Mean Corpuscular Volume 86.1 FL (87-102); Mean Platelet Volume 9.8 FL (9.6-12.0); Monocytes % 4.5 % (1.7-12.7); Neutrophils % 80.8 % (38.7-73.9); Platelet Count 149 T/CUMM (130-400); Red Blood Count 4.98 MC/CUMM (3.8-5.5); Red Cell Distribution Width 15.2 % (9.3-17.3); White Blood Count 10.3 T/CUMM (4-12)
[2018-11-16 10:39] LABS: Alanine Aminotransferase 9 U/L (16-61); Albumin 3.5 G/DL (3.4-5.0); Alkaline Phosphatase 227 U/L (45-117); Aspartate Amino Transferase 20 U/L (0-37); Blood Urea Nitrogen 14 MG/DL (7-18); Glucose 216 MG/DL (74-106); Osmolality,Calculated 269.7 MOS/KG (273-304); Total Protein 7.7 G/DL (6.4-8.3)
[2018-11-16 10:46] LABS: Calcium 9.5 MG/DL (8.5-10.1)
[2018-11-16 10:46] LABS: Band Neutrophils 2 % (0-10); Lymphocytes 9 % (20-55); Segmented Neutrophils 82 % (50-85); Total Cells Counted 100
[2018-11-16 10:47] LABS: Platelet Estimate Adequate; Polychromasia Slight
[2018-11-16] MEDS ORDERED: PIPERACILLIN/TAZOBACTAM 3,375 MG in SODIUM CHLORIDE 0.9% 100 ML IV STA (10:50)
[2018-11-16] MEDS ORDERED: ONDANSETRON 4 MG/2 ML VIAL IV PRN (11:55)
[2018-11-16] MEDS ORDERED: ACETAMINOPHEN 325 MG TABLET PO PRN (11:55)
[2018-11-16 12:39] LABS: Risk Ratio 2.03; Thyroid Stimulating Hormone 1.17 uIU/ml (0.358-3.74); VLDL CHOLESTEROL 27.6 MG/DL
[2018-11-16] MEDS ORDERED: SEVELAMER CARBONATE 800 MG TABLET PO SCH (17:00)
[2018-11-16] MEDS ORDERED: CARBIDOPA/LEVODOPA 25-100 MG TABLET PO SCH (17:00)
[2018-11-16] MEDS: METOCLOPRAMIDE 5 MG TABLET PO SCH (21:34)
[2018-11-16] MEDS: rOPINIRole 0.25 MG TABLET PO SCH (21:34)
[2018-11-16] MEDS: ENOXAPARIN 30 MG/0.3 ML SYRINGE SUBCUT SCH (21:34)
[2018-11-16] MEDS: AMITRIPTYLINE 25 MG TABLET PO SCH (21:34)
[2018-11-17] MEDS: PIPERACILLIN/TAZOBACTAM 3,375 MG in SODIUM CHLORIDE 0.9% 100 ML IV SCH ×2 (00:59→11:37)
[2018-11-17 05:22] LABS: Basophils # 0.1 10*3/uL (0.0-0.2); Basophils % 0.8 % (0.0-0.8); Eosinophils # 0.1 10*3/uL (0.0-0.87); Eosinophils % 2.1 % (0.00-10.9); Hemoglobin 12.6 GM/DL (14.0-18.0); Immature Granulocytes Absolute 0.26 #; Lymphocytes # 0.5 10*3/uL (1.4-4.0); Lymphocytes % 7.5 % (21.2-54.2); Mean Corpuscular HGB Conc 31.5 GM/DL (32-36); Mean Corpuscular Volume 84.7 FL (87-102); Mean Platelet Volume 9.8 FL (9.6-12.0); Monocytes % 13.1 % (1.7-12.7); NRBC # 0.02 10*3/uL; Neutrophils % 72.5 % (38.7-73.9); Platelet Count 145 T/CUMM (130-400); Red Blood Count 4.72 MC/CUMM (3.8-5.5); Red Cell Distribution Width 15.2 % (9.3-17.3); White Blood Count 6.6 T/CUMM (4-12)
[2018-11-17 05:54] LABS: Calcium 9.2 MG/DL (8.5-10.1); Osmolality,Calculated 261.9 MOS/KG (273-304)
[2018-11-17] MEDS: SEVELAMER CARBONATE 800 MG TABLET PO SCH ×3 (09:38→17:35)
[2018-11-17] MEDS: PANTOPRAZOLE 40 MG TABLET PO SCH (09:38)
[2018-11-17] MEDS: ROSUVASTATIN 20 MG TABLET PO SCH (09:38)
[2018-11-17] MEDS: AMIODARONE 200 MG TABLET PO SCH (09:38)
[2018-11-17] MEDS: ASPIRIN EC 81 MG TABLET PO SCH (09:39)
[2018-11-17] MEDS: MULTIVITAMIN (CENTRUM) TABLET PO SCH (09:39)
[2018-11-17] MEDS: LORATADINE 10 MG TABLET PO SCH (09:39)
[2018-11-17] MEDS: CARBIDOPA/LEVODOPA 25-100 MG TABLET PO SCH ×3 (09:39→17:35)
[2018-11-17] MEDS: METOCLOPRAMIDE 5 MG TABLET PO SCH ×2 (09:39→17:35)
[2018-11-17] MEDS: CLOPIDOGREL 75 MG TABLET PO SCH (09:39)
[2018-11-17] MEDS: rOPINIRole 0.25 MG TABLET PO SCH ×3 (09:39→21:38)
[2018-11-17] MEDS: ENOXAPARIN 30 MG/0.3 ML SYRINGE SUBCUT SCH (21:39)
[2018-11-17] MEDS: AMITRIPTYLINE 25 MG TABLET PO SCH (21:39)
[2018-11-18] MEDS: PIPERACILLIN/TAZOBACTAM 3,375 MG in SODIUM CHLORIDE 0.9% 100 ML IV SCH ×2 (00:39→11:54)
[2018-11-18 04:42] LABS: Basophils # 0.1 10*3/uL (0.0-0.2); Eosinophils # 0.2 10*3/uL (0.0-0.87); Eosinophils % 3.1 % (0.00-10.9); Hematocrit 37.2 VOL% (42.0-52.0); Hemoglobin 11.3 GM/DL (14.0-18.0); Immature Granulocytes % 6.4 %; Immature Granulocytes Absolute 0.31 #; Lymphocytes # 0.6 10*3/uL (1.4-4.0); Mean Corpuscular HGB Conc 30.4 GM/DL (32-36); Mean Corpuscular Volume 85.5 FL (87-102); Mean Platelet Volume 9.7 FL (9.6-12.0); Neutrophils % 63.5 % (38.7-73.9); Platelet Count 131 T/CUMM (130-400); Red Blood Count 4.35 MC/CUMM (3.8-5.5); Red Cell Distribution Width 15.1 % (9.3-17.3); White Blood Count 4.9 T/CUMM (4-12)
[2018-11-18 05:02] LABS: Calcium 8.9 MG/DL (8.5-10.1); Osmolality,Calculated 266.8 MOS/KG (273-304)
[2018-11-18 06:48] LABS: Anisocytosis 1+; Platelet Estimate Adequate; Poikilocytosis Slight
[2018-11-18 06:49] LABS: Macrocytosis Slight
[2018-11-18 06:54] LABS: Band Neutrophils 8 % (0-10); Eosinophils 2 % (0-10); Lymphocytes 16 % (20-55); Segmented Neutrophils 60 % (50-85); Total Cells Counted 100
[2018-11-18] MEDS: PANTOPRAZOLE 40 MG TABLET PO SCH (09:09)
[2018-11-18] MEDS: rOPINIRole 0.25 MG TABLET PO SCH ×3 (09:09→21:34)
[2018-11-18] MEDS: ASPIRIN EC 81 MG TABLET PO SCH (09:09)
[2018-11-18] MEDS: MULTIVITAMIN (CENTRUM) TABLET PO SCH (09:09)
[2018-11-18] MEDS: ROSUVASTATIN 20 MG TABLET PO SCH (09:09)
[2018-11-18] MEDS: LORATADINE 10 MG TABLET PO SCH (09:09)
[2018-11-18] MEDS: AMIODARONE 200 MG TABLET PO SCH (09:09)
[2018-11-18] MEDS: CARBIDOPA/LEVODOPA 25-100 MG TABLET PO SCH ×3 (09:10→17:01)
[2018-11-18] MEDS: SEVELAMER CARBONATE 800 MG TABLET PO SCH ×3 (09:10→17:01)
[2018-11-18] MEDS: METOCLOPRAMIDE 5 MG TABLET PO SCH ×2 (09:10→17:03)
[2018-11-18] MEDS: CLOPIDOGREL 75 MG TABLET PO SCH (09:16)
[2018-11-18] MEDS: ENOXAPARIN 30 MG/0.3 ML SYRINGE SUBCUT SCH (21:34)
[2018-11-18] MEDS: AMITRIPTYLINE 25 MG TABLET PO SCH (21:34)
[2018-11-19] MEDS: PIPERACILLIN/TAZOBACTAM 3,375 MG in SODIUM CHLORIDE 0.9% 100 ML IV SCH ×2 (00:38→12:25)
[2018-11-19 04:38] LABS: Basophils # 0.1 10*3/uL (0.0-0.2); Basophils % 1.3 % (0.0-0.8); Eosinophils # 0.2 10*3/uL (0.0-0.87); Eosinophils % 4.2 % (0.00-10.9); Hematocrit 36.9 VOL% (42.0-52.0); Hemoglobin 11.6 GM/DL (14.0-18.0); Immature Granulocytes % 9.8 %; Immature Granulocytes Absolute 0.44 #; Lymphocytes # 0.5 10*3/uL (1.4-4.0); Lymphocytes % 10.9 % (21.2-54.2); Mean Corpuscular HGB Conc 31.4 GM/DL (32-36); Mean Corpuscular Volume 83.7 FL (87-102); Mean Platelet Volume 9.7 FL (9.6-12.0); Neutrophils % 57.8 % (38.7-73.9); Platelet Count 131 T/CUMM (130-400); Red Blood Count 4.41 MC/CUMM (3.8-5.5); Red Cell Distribution Width 14.9 % (9.3-17.3); White Blood Count 4.5 T/CUMM (4-12)
[2018-11-19 05:07] LABS: Calcium 8.9 MG/DL (8.5-10.1); Osmolality,Calculated 262.2 MOS/KG (273-304)
[2018-11-19 05:08] LABS: Eosinophils 3 % (0-10); Lymphocytes 8 % (20-55); Segmented Neutrophils 82 % (50-85); Total Cells Counted 100
[2018-11-19 05:09] LABS: Anisocytosis 1+; Platelet Estimate Decreased
[2018-11-19] MEDS: METOCLOPRAMIDE 5 MG TABLET PO SCH (10:38)
[2018-11-19] MEDS: SEVELAMER CARBONATE 800 MG TABLET PO SCH ×2 (10:38→12:25)
[2018-11-19] MEDS: CARBIDOPA/LEVODOPA 25-100 MG TABLET PO SCH ×2 (10:39→12:25)
[2018-11-19] MEDS: MULTIVITAMIN (CENTRUM) TABLET PO SCH (10:39)
[2018-11-19] MEDS: ASPIRIN EC 81 MG TABLET PO SCH (10:39)
[2018-11-19] MEDS: LORATADINE 10 MG TABLET PO SCH (10:40)
[2018-11-19] MEDS: CLOPIDOGREL 75 MG TABLET PO SCH (10:40)
[2018-11-19] MEDS: AMIODARONE 200 MG TABLET PO SCH (10:40)
[2018-11-19] MEDS: ROSUVASTATIN 20 MG TABLET PO SCH (10:40)
[2018-11-19] MEDS: rOPINIRole 0.25 MG TABLET PO SCH (10:41)
[2018-11-19] MEDS: PANTOPRAZOLE 40 MG TABLET PO SCH (10:41)
[2018-11-19 12:36] VITALS: BP 114/68
== END 2018-11-19 14:00 | disposition home or self-care (01) | DRG 391 ==
LOC: N.ED 09:04 → N.EDINP 11:55 → N.3E 13:53
PROVIDERS: ADMIT Internal Medicine; ATTEND Internal Medicine

== ENCOUNTER 2018-12-18 05:22 | Inpatient (IN) ==
[2018-12-18] MEDS ORDERED: LACTATED RINGERS 1,000 ML IV SCH (06:00)
[2018-12-18] MEDS ORDERED: ceFAZolin 1,000 MG VIAL ONE (06:01)
[2018-12-18] MEDS ORDERED: ceFAZolin 1,000 MG in SYRINGE 1 EACH IV ONE (06:30)
[2018-12-18 06:31] LABS: Hematocrit 41.2 VOL% (42.0-52.0); Hemoglobin 12.6 GM/DL (14.0-18.0)
[2018-12-18 06:57] LABS: Calcium 9.5 MG/DL (8.5-10.1)
[2018-12-18] MEDS ORDERED: SODIUM CHLORIDE 0.9% 250 ML IV SCH (07:30)
[2018-12-18] MEDS ORDERED: MIDAZOLAM 2 MG/2 ML VIAL ONE (07:53)
[2018-12-18] MEDS ORDERED: BUPIVACAINE 0.5% 50 ML VIAL ONE (07:56)
[2018-12-18] MEDS ORDERED: EPINEPHrine 1 MG/ML VIAL ONE (07:56)
[2018-12-18] MEDS ORDERED: DEXAMETHASONE 4 MG/1 ML VIAL ONE (07:57)
[2018-12-18] MEDS ORDERED: SUGAMMADEX 200 MG/2 ML VIAL IV ONE (13:10)
[2018-12-18] MEDS ORDERED: ROCURONIUM 100 MG/10 ML VIAL IV ONE (13:29)
[2018-12-18] MEDS ORDERED: PHENYLEPHRINE 1 MG/10 ML SYRINGE IV ONE (13:29)
[2018-12-18] MEDS ORDERED: fentaNYL 100 MCG/2 ML VIAL ONE (13:29)
[2018-12-18] MEDS ORDERED: SODIUM CHLORIDE 0.9% 250 ML IV ONE (13:29)
[2018-12-18] MEDS ORDERED: PROPOFOL 200 MG/20 ML VIAL IV ONE (13:29)
[2018-12-18] MEDS ORDERED: SEVOFLURANE 1 UNIT/15 MINUTE INH ONE (13:29)
[2018-12-18] MEDS ORDERED: HYDROmorphone 2 MG/1 ML VIAL ONE (13:45)
[2018-12-18] MEDS ORDERED: HYDROmorphone 2 MG/1 ML VIAL IV PRN (13:49)
[2018-12-18] MEDS ORDERED: ONDANSETRON 4 MG/2 ML VIAL IV PRN (14:20)
[2018-12-18] MEDS ORDERED: PROMETHAZINE 25 MG/1 ML VIAL IM PRN (14:20)
[2018-12-18] MEDS ORDERED: SEVELAMER CARBONATE 800 MG TABLET PO PRN (14:28)
[2018-12-18 15:32] LABS: Calcium 9.1 MG/DL (8.5-10.1); Osmolality,Calculated 278.1 MOS/KG (273-304)
[2018-12-18] MEDS: SODIUM CHLORIDE 0.9% 1,000 ML IV SCH ×2 (15:47→21:35)
[2018-12-18] MEDS: SEVELAMER CARBONATE 800 MG TABLET PO SCH ×2 (15:50→16:30)
[2018-12-18 15:55] LABS: Basophils # 0.1 10*3/uL (0.0-0.2); Basophils % 0.4 % (0.0-0.8); Eosinophils % 0.1 % (0.00-10.9); Hematocrit 47.1 VOL% (42.0-52.0); Hematocrit 47.3 VOL% (42.0-52.0); Hemoglobin 14.2 GM/DL (14.0-18.0); Hemoglobin 14.4 GM/DL (14.0-18.0); Immature Granulocytes % 2.1 %; Immature Granulocytes Absolute 0.35 #; Lymphocytes # 1.5 10*3/uL (1.4-4.0); Mean Corpuscular Volume 85.7 FL (87-102); Mean Platelet Volume 10.6 FL (9.6-12.0); Monocytes % 6.6 % (1.7-12.7); NRBC # 0.03 10*3/uL; Neutrophils % 81.8 % (38.7-73.9); Platelet Count 233 T/CUMM (130-400); Red Blood Count 5.52 MC/CUMM (3.8-5.5); Red Cell Distribution Width 16.5 % (9.3-17.3); White Blood Count 16.6 T/CUMM (4-12)
[2018-12-18] MEDS: rOPINIRole 0.25 MG TABLET PO SCH ×2 (16:27→21:35)
[2018-12-18] MEDS: ROSUVASTATIN 20 MG TABLET PO SCH (16:27)
[2018-12-18] MEDS: ASPIRIN EC 81 MG TABLET PO SCH (16:28)
[2018-12-18] MEDS: PANTOPRAZOLE 40 MG TABLET PO SCH ×2 (16:29→21:35)
[2018-12-18] MEDS: METOCLOPRAMIDE 5 MG TABLET PO SCH ×2 (16:29→21:35)
[2018-12-18] MEDS: CARBIDOPA/LEVODOPA 25-100 MG TABLET PO SCH (17:40)
[2018-12-18] MEDS: HYDROmorphone 2 MG/1 ML VIAL IV PRN (17:53)
[2018-12-18] MEDS ORDERED: LACTATED RINGERS 1,000 ML IV ONE (21:25)
[2018-12-18] MEDS: AMITRIPTYLINE 25 MG TABLET PO SCH (21:35)
[2018-12-18 22:32] LABS: Hematocrit 41.6 VOL% (42.0-52.0); Hemoglobin 12.2 GM/DL (14.0-18.0)
[2018-12-19] MEDS: HYDROmorphone 2 MG/1 ML VIAL IV PRN ×2 (05:08→17:40)
[2018-12-19 06:04] LABS: Basophils # 0.1 10*3/uL (0.0-0.2); Basophils % 0.4 % (0.0-0.8); Hematocrit 42.5 VOL% (42.0-52.0); Hemoglobin 12.6 GM/DL (14.0-18.0); Immature Granulocytes % 1.8 %; Lymphocytes # 0.5 10*3/uL (1.4-4.0); Lymphocytes % 3.1 % (21.2-54.2); Mean Corpuscular HGB Conc 29.6 GM/DL (32-36); Mean Corpuscular Volume 87.1 FL (87-102); Mean Platelet Volume 11.2 FL (9.6-12.0); Monocytes % 10.6 % (1.7-12.7); NRBC # 0.07 10*3/uL; Neutrophils % 84.1 % (38.7-73.9); Platelet Count 218 T/CUMM (130-400); Red Blood Count 4.88 MC/CUMM (3.8-5.5); Red Cell Distribution Width 16.6 % (9.3-17.3); White Blood Count 16.6 T/CUMM (4-12)
[2018-12-19 06:10] LABS: Band Neutrophils 21 % (0-10); Lymphocytes 3 % (20-55); Segmented Neutrophils 70 % (50-85); Total Cells Counted 100
[2018-12-19 06:12] LABS: Anisocytosis 1+; Calcium 9.4 MG/DL (8.5-10.1); Osmolality,Calculated 285.7 MOS/KG (273-304); Ovalocytes 1+; Platelet Estimate Adequate
[2018-12-19] MEDS: SODIUM CHLORIDE 0.9% 1,000 ML IV SCH (06:39)
[2018-12-19 07:04] LABS: Hematocrit 45.3 VOL% (42.0-52.0)
[2018-12-19 07:10] LABS: Hemoglobin 13.6 GM/DL (14.0-18.0)
[2018-12-19] MEDS: CARBIDOPA/LEVODOPA 25-100 MG TABLET PO SCH ×3 (09:43→16:12)
[2018-12-19] MEDS: SEVELAMER CARBONATE 800 MG TABLET PO SCH ×3 (09:43→16:12)
[2018-12-19] MEDS: PANTOPRAZOLE 40 MG TABLET PO SCH ×2 (09:43→21:06)
[2018-12-19] MEDS: AMIODARONE 200 MG TABLET PO SCH (09:43)
[2018-12-19] MEDS: METOCLOPRAMIDE 5 MG TABLET PO SCH ×2 (09:43→21:06)
[2018-12-19] MEDS: ASPIRIN EC 81 MG TABLET PO SCH (09:43)
[2018-12-19] MEDS: rOPINIRole 0.25 MG TABLET PO SCH ×3 (09:43→21:06)
[2018-12-19] MEDS: ROSUVASTATIN 20 MG TABLET PO SCH (09:47)
[2018-12-19] MEDS: MULTIVITAMIN (CENTRUM) TABLET PO SCH (09:47)
[2018-12-19] MEDS ORDERED: HEPARIN 10,000 UNIT/10 ML VIAL IV PRN (12:30)
[2018-12-19] MEDS ORDERED: ALTEPLASE 2 MG VIAL IV ONE (13:00)
[2018-12-19] MEDS ORDERED: ALBUMIN 25% 25 GM in PREMIX 1 EACH IV SCH (13:30)
[2018-12-19] MEDS: AMITRIPTYLINE 25 MG TABLET PO SCH (21:06)
[2018-12-20] MEDS: HYDROmorphone 2 MG/1 ML VIAL IV PRN ×4 (01:38→23:28)
[2018-12-20] MEDS ORDERED: SODIUM BICARBONATE 50 MEQ/50 ML SYRINGE IV ONE (05:39)
[2018-12-20] MEDS ORDERED: EPINEPHrine 1 MG/ML VIAL ONE (05:39)
[2018-12-20 05:40] LABS: Basophils % 0.1 % (0.0-0.8); Hematocrit 35.7 VOL% (42.0-52.0); Hemoglobin 10.9 GM/DL (14.0-18.0); Immature Granulocytes % 1.7 %; Immature Granulocytes Absolute 0.12 #; Lymphocytes # 0.3 10*3/uL (1.4-4.0); Lymphocytes % 3.7 % (21.2-54.2); Mean Corpuscular HGB Conc 30.5 GM/DL (32-36); Mean Corpuscular Volume 84.6 FL (87-102); Mean Platelet Volume 10.1 FL (9.6-12.0); Monocytes % 9.3 % (1.7-12.7); NRBC # 0.12 10*3/uL; Neutrophils % 85.2 % (38.7-73.9); Platelet Count 112 T/CUMM (130-400); Red Blood Count 4.22 MC/CUMM (3.8-5.5); Red Cell Distribution Width 16.8 % (9.3-17.3); White Blood Count 7.1 T/CUMM (4-12)
[2018-12-20 05:58] LABS: Band Neutrophils 6 % (0-10); Lymphocytes 3 % (20-55); Nucleated Red Blood Cells 3 (0-5); Platelet Estimate Decreased; Segmented Neutrophils 83 % (50-85); Total Cells Counted 100
[2018-12-20 05:59] LABS: Hypochromasia Slight
[2018-12-20 06:16] LABS: Alanine Aminotransferase < 9 U/L (16-61); Albumin 2.6 G/DL (3.4-5.0); Alkaline Phosphatase 95 U/L (45-117); Aspartate Amino Transferase 22 U/L (0-37); Blood Urea Nitrogen 21 MG/DL (7-18); Calcium 8.8 MG/DL (8.5-10.1); Glucose 155 MG/DL (74-106); Osmolality,Calculated 282.5 MOS/KG (273-304); Total Protein 5.7 G/DL (6.4-8.3)
[2018-12-20] MEDS: ROSUVASTATIN 20 MG TABLET PO SCH (10:01)
[2018-12-20] MEDS: MULTIVITAMIN (CENTRUM) TABLET PO SCH (10:01)
[2018-12-20] MEDS: rOPINIRole 0.25 MG TABLET PO SCH ×3 (10:01→21:40)
[2018-12-20] MEDS: AMIODARONE 200 MG TABLET PO SCH (10:01)
[2018-12-20] MEDS: ASPIRIN EC 81 MG TABLET PO SCH (10:02)
[2018-12-20] MEDS: CARBIDOPA/LEVODOPA 25-100 MG TABLET PO SCH ×3 (10:02→16:13)
[2018-12-20] MEDS: SEVELAMER CARBONATE 800 MG TABLET PO SCH ×3 (10:02→16:13)
[2018-12-20] MEDS: PANTOPRAZOLE 40 MG TABLET PO SCH ×2 (10:02→21:40)
[2018-12-20] MEDS: METOCLOPRAMIDE 5 MG TABLET PO SCH ×2 (10:03→21:40)
[2018-12-20] MEDS ORDERED: LIDOCAINE 1% 20 ML VIAL ONE (11:14)
[2018-12-20] MEDS ORDERED: fentaNYL 100 MCG/2 ML VIAL ONE (11:15)
[2018-12-20] MEDS ORDERED: MIDAZOLAM 2 MG/2 ML VIAL ONE (11:15)
[2018-12-20] MEDS ORDERED: ENOXAPARIN 30 MG/0.3 ML SYRINGE ONE (11:51)
[2018-12-20] MEDS ORDERED: TIROFIBAN 5,000 MCG/100 ML PREMIX IV ONE (11:51)
[2018-12-20] MEDS ORDERED: TIROFIBAN 5,000 MCG/100 ML PREMIX IV SCH (11:58)
[2018-12-20] MEDS ORDERED: TICAGRELOR 90 MG TABLET ONE (12:30)
[2018-12-20 13:35] LABS: CKMB % 2.9 %; Troponin I 0.022 NG/ML (0.00-0.045)
[2018-12-20 14:13] LABS: Basophils % 0.3 % (0.0-0.8); Hematocrit 35.7 VOL% (42.0-52.0); Hemoglobin 10.6 GM/DL (14.0-18.0); Immature Granulocytes % 1.5 %; Immature Granulocytes Absolute 0.13 #; Lymphocytes # 0.3 10*3/uL (1.4-4.0); Lymphocytes % 3.2 % (21.2-54.2); Mean Corpuscular HGB Conc 29.7 GM/DL (32-36); Mean Corpuscular Volume 86.2 FL (87-102); Mean Platelet Volume 10.4 FL (9.6-12.0); Monocytes % 10.9 % (1.7-12.7); NRBC # 0.13 10*3/uL; Neutrophils % 84.1 % (38.7-73.9); Platelet Count 117 T/CUMM (130-400); Red Blood Count 4.14 MC/CUMM (3.8-5.5); Red Cell Distribution Width 16.9 % (9.3-17.3); White Blood Count 8.8 T/CUMM (4-12)
[2018-12-20 15:12] LABS: Band Neutrophils 6 % (0-10); Hypochromasia Slight; Lymphocytes 8 % (20-55); Nucleated Red Blood Cells 2 (0-5); Platelet Estimate Adequate; Segmented Neutrophils 78 % (50-85); Total Cells Counted 100
[2018-12-20 16:57] LABS: CKMB % 3.3 %; Troponin I 0.034 NG/ML (0.00-0.045)
[2018-12-20 18:30] VITALS: BP 143/75
[2018-12-20 19:04] LABS: CKMB % 3.4 %; Troponin I 0.03 NG/ML (0.00-0.045)
[2018-12-20] MEDS ORDERED: TICAGRELOR 90 MG TABLET PO SCH (21:00)
[2018-12-20] MEDS: AMITRIPTYLINE 25 MG TABLET PO SCH (21:40)
[2018-12-21 01:11] LABS: Basophils % 0.2 % (0.0-0.8); Hematocrit 33.9 VOL% (42.0-52.0); Hemoglobin 10.4 GM/DL (14.0-18.0); Immature Granulocytes Absolute 0.18 #; Lymphocytes # 0.3 10*3/uL (1.4-4.0); Lymphocytes % 3.3 % (21.2-54.2); Mean Corpuscular HGB Conc 30.7 GM/DL (32-36); Mean Corpuscular Volume 84.8 FL (87-102); Mean Platelet Volume 11.7 FL (9.6-12.0); NRBC # 0.15 10*3/uL; Neutrophils % 84.5 % (38.7-73.9); Platelet Count 143 T/CUMM (130-400); Red Cell Distribution Width 16.9 % (9.3-17.3)
[2018-12-21 01:21] LABS: Band Neutrophils 16 % (0-10); Lymphocytes 6 % (20-55); Metamyelocytes 5 %; Nucleated Red Blood Cells 1 (0-5); Segmented Neutrophils 64 % (50-85)
[2018-12-21 01:23] LABS: Hypochromasia Slight; Platelet Estimate Normal; Polychromasia Few
[2018-12-21 01:24] LABS: Total Cells Counted 100
[2018-12-21] MEDS ORDERED: LEVALBUTEROL 0.63 MG/3 ML NEB RESP TX PRN (01:31)
[2018-12-21] MEDS ORDERED: ETOMIDATE 20 MG/10 ML VIAL IV ONE ×2 (04:49→04:56)
[2018-12-21] MEDS ORDERED: VECURONIUM 10 MG VIAL IV ONE ×2 (04:50→04:56)
[2018-12-21] MEDS ORDERED: FUROSEMIDE 20 MG/2 ML VIAL ONE (04:50)
[2018-12-21] MEDS ORDERED: SUCCINYLCHOLINE 200 MG/10 ML VIAL ONE (04:51)
[2018-12-21] MEDS ORDERED: FUROSEMIDE 40 MG/4 ML VIAL IV ONE (04:55)
[2018-12-21] MEDS ORDERED: NOREPINEPHRINE 4 MG/4 ML VIAL IV ONE ×3 (05:02→05:39)
[2018-12-21] MEDS ORDERED: VANCOMYCIN INJ 500 MG in SODIUM CHLORIDE 0.9% 100 ML IV PRN (05:26)
[2018-12-21] MEDS ORDERED: VANCOMYCIN INJ 1,000 MG in SODIUM CHLORIDE 0.9% 250 ML IV ONE (05:30)
[2018-12-21] MEDS ORDERED: PIPERACILLIN/TAZOBACTAM 3,375 MG in SODIUM CHLORIDE 0.9% 100 ML IV SCH (05:30)
[2018-12-21] MEDS ORDERED: PHENYLEPHRINE DRIP 40 MG/250 ML PREMIX IV ONE (05:41)
[2018-12-21] MEDS ORDERED: EPINEPHrine 1 MG/10 ML SYRINGE ONE (05:43)
[2018-12-21] MEDS ORDERED: EPINEPHrine 1 MG/ML VIAL ONE ×2 (05:43→06:06)
[2018-12-21] MEDS ORDERED: NOREPINEPHRINE 16 MG in SODIUM CHLORIDE 0.9% 234 ML IV PRN (05:48)
[2018-12-21] MEDS ORDERED: DOPamine 800 MG/250 ML PREMIX IV PRN (05:49)
[2018-12-21 05:52] LABS: Alanine Aminotransferase < 6 U/L (16-61); Albumin 2.2 G/DL (3.4-5.0); Alkaline Phosphatase 98 U/L (45-117); Aspartate Amino Transferase 63 U/L (0-37); Blood Urea Nitrogen 37 MG/DL (7-18); CKMB % 3.7 %; Calcium 9.2 MG/DL (8.5-10.1); Glucose 229 MG/DL (74-106); Osmolality,Calculated 285.1 MOS/KG (273-304); Total Protein 5.3 G/DL (6.4-8.3)
[2018-12-21 05:53] LABS: Troponin I 0.053 NG/ML (0.00-0.045)
[2018-12-21] MEDS ORDERED: PHENYLEPHRINE DRIP 40 MG/250 ML PREMIX IV PRN (06:02)
[2018-12-21 06:07] LABS: Risk Ratio 1.73
[2018-12-21] MEDS ORDERED: ATROPINE 1 MG/10 ML SYRINGE IV ONE (06:41)
[2018-12-21 06:49] LABS: Basophils % 0.8 % (0.0-0.8); Hematocrit 34.3 VOL% (42.0-52.0); Hemoglobin 9.7 GM/DL (14.0-18.0); Immature Granulocytes % 1.5 %; Immature Granulocytes Absolute 0.06 #; Lymphocytes # 0.4 10*3/uL (1.4-4.0); Lymphocytes % 10.8 % (21.2-54.2); Mean Corpuscular HGB Conc 28.3 GM/DL (32-36); Mean Corpuscular Volume 89.8 FL (87-102); Mean Platelet Volume 11.7 FL (9.6-12.0); Monocytes % 4.1 % (1.7-12.7); NRBC # 0.19 10*3/uL; Neutrophils % 82.8 % (38.7-73.9); Platelet Count 139 T/CUMM (130-400); Red Blood Count 3.82 MC/CUMM (3.8-5.5); Red Cell Distribution Width 16.8 % (9.3-17.3); White Blood Count 3.9 T/CUMM (4-12)
[2018-12-21 06:57] LABS: Band Neutrophils 23 % (0-10); Lymphocytes 15 % (20-55); Myelocytes 2 %; Nucleated Red Blood Cells 3 (0-5); Segmented Neutrophils 56 % (50-85); Total Cells Counted 100
[2018-12-21 06:58] LABS: Hypochromasia Slight; Platelet Estimate Normal
[2018-12-21] MEDS ORDERED: VANCOMYCIN INJ 1,500 MG in SODIUM CHLORIDE 0.9% 500 ML IV ONE (08:00)
== END 2018-12-21 06:25 | disposition expired | DRG 329 ==
LOC: N.SDSINP 05:22 → N.CC 14:01
PROVIDERS: ADMIT Surgery; ATTEND Surgery